=== PATIENT | male | born 1970 | race Caucasian/White ===

== ENCOUNTER 2021-05-15 05:37 | Inpatient (IN) | payer BC, OTHER ==
[2021-05-15] MEDS ORDERED: SODIUM CHLORIDE 0.9% 1,000 ML IV STA (06:17)
[2021-05-15] MEDS ORDERED: PANTOPRAZOLE 40 MG/10 ML VIAL IVP STA (06:17)
--- NOTE | 2021-05-15 06:20 | ED ---
General Adult HPI - General Chief complaint: GI Bleed Stated complaint: Vomiting Blood Time Seen by Provider: 05/15/21 06:02 Source: patient, RN notes reviewed Mode of arrival: ambulatory - History of Present Illness Initial comments: 50-year-old male with a past medical history of hypertension, chronic alcoholism presents to the emergency room for a chief complaint of vomiting blood times one. Patient states he woke up this morning and had some upper abdominal discomfort. Patient states he vomited about a cup of blood. Patient states that for the past year 4 days he has also had black stools and has felt off. Patient denies any additional episodes of hematemesis. patient denies similar symptoms in the past. Patient has no other complaints at this time including sh ortness of breath, chest pain, abdominal pain, headache, or visual changes. - Related Data Home Medications Medication Instructions Recorded Confirmed DULoxetine HCL [Cymbalta] 180 mg PO PC-SUPPER 05/15/21 05/15/21 Enalapril [Vasotec] 10 mg PO DIRECTED 05/15/21 05/15/21 Esomeprazole Magnesium [NexIUM 20 mg PO PC-SUPPER 05/15/21 05/15/21 24Hr] amLODIPine [Norvasc] 10 mg PO PC-SUPPER 05/15/21 05/15/21 Allergies Allergy/AdvReac Type Severity Reaction Status Date / Time No Known Allergies Allergy Verified 05/15/21 08:05 Review of Systems ROS Statement: Those systems with pertinent positive or pertinent negative responses have been documented in the HPI. ROS Other: All systems not noted in ROS Statement are negative. Past Medical History Past Medical History: Hypertension History of Any Multi-Drug Resistant Organisms: None Reported Past Surgical History: Appendectomy, Orthopedic Surgery Past Psychological History: Bipolar Smoking Status: Current every day smoker Past Alcohol Use History: Abuse, Daily, Heavy Past Drug Use History: None Reported General Exam General appearance: alert, in no apparent distress Head exam: Present: atraumatic Eye exam: Present: normal appearance, PERRL, EOMI. Absent: scleral icterus, conjunctival injection ENT exam: Present: normal exam, mucous membranes moist Neck exam: Present: normal inspection, full ROM. Absent: tenderness Respiratory exam: Present: normal lung sounds bilaterally. Absent: respiratory distress, wheezes Cardiovascular Exam: Present: regular rate, normal rhythm, normal heart sounds GI/Abdominal exam: Present: soft, normal bowel sounds. Absent: distended, tenderness, guarding, rebound, rigid Rectal exam: Present: normal inspection, black stool Neurological exam: Present: alert Course Vital Signs 05/15/21 05/15/21 05/15/21 05:40 06:41 07:29 Temperature 97.9 F 98.6 F Pulse Rate 85 80 91 Respiratory 20 18 14 Rate Blood Pressure 98/65 133/79 137/71 O2 Sat by Pulse 99 100 99 Oximetry 05/15/21 05/15/21 12:50 15:19 Temperature 98.3 F Pulse Rate 91 86 Respiratory 18 14 Rate Blood Pressure 120/65 130/90 O2 Sat by Pulse 99 96 Oximetry Medical Decision Making - Medical Decision Making Vitals are stable. Patient presents to the emergency room for hematemesis and black stools. He has only had one episode of hematemesis. Patient is an alcoholic. CBC does show a hemoglobin of 7.9. He do not have a previous on file. CMP does show mild dehydration. Slight hypomagnesemia, will be replaced. Occult blood is positive. X-ray of the chest is unremarkable. Patient was given Protonix. Case discussed with Dr. Hagen. As we will have GI on board tomorrow morning he is agreeing to consult on patient today as it is extremely difficult to facilitate transfers secondary to the pandemic at this time, recommends admission to medicine. We will repeat hemoglobin 4 hours. - Lab Data Result diagrams: 05/15/21 11:59 05/15/21 06:23 Lab Results 05/15/21 05/15/21 05/15/21 Range/Units 06:23 06:23 06:23 WBC 11.6 H (3.8-10.6) k/uL RBC 2.75 L (4.30-5.90) m/uL Hgb 7.9 L (13.0-17.5) gm/dL Hct 24.9 L (39.0-53.0) % MCV 90.4 (80.0-100.0) fL MCH 28.8 (25.0-35.0) pg MCHC 31.9 (31.0-37.0) g/dL RDW 16.2 H (11.5-15.5) % Plt Count 218 (150-450) k/uL MPV 7.5 Neutrophils % 78 % Lymphocytes % 11 % Monocytes % 6 % Eosinophils % 1 % Basophils % 1 % Neutrophils # 9.0 H (1.3-7.7) k/uL Lymphocytes # 1.3 (1.0-4.8) k/uL Monocytes # 0.7 (0-1.0) k/uL Eosinophils # 0.1 (0-0.7) k/uL Basophils # 0.1 (0-0.2) k/uL Anisocytosis Slight PT 11.6 (9.0-12.0) sec INR 1.1 (<1.2) APTT 24.8 (22.0-30.0) sec Sodium (137-145) mmol/L Potassium (3.5-5.1) mmol/L Chloride (98-107) mmol/L Carbon Dioxide (22-30) mmol/L Anion Gap mmol/L BUN (9-20) mg/dL Creatinine (0.66-1.25) mg/dL Est GFR (CKD-EPI)AfAm (>60 ml/min/1.73 sqM) Est GFR (CKD-EPI)NonAf (>60 ml/min/1.73 sqM) Glucose (74-99) mg/dL Calcium (8.4-10.2) mg/dL Magnesium (1.6-2.3) mg/dL Total Bilirubin (0.2-1.3) mg/dL AST (17-59) U/L ALT (4-49) U/L Alkaline Phosphatase (38-126) U/L Total Protein (6.3-8.2) g/dL Albumin (3.5-5.0) g/dL Stool Occult Blood Positive (Negative) Blood Type Blood Type Confirm Blood Type Recheck Bld Type Recheck Status Antibody Screen Spec Expiration Date 05/15/21 05/15/21 05/15/21 Range/Units 06:23 06:50 06:55 WBC (3.8-10.6) k/uL RBC (4.30-5.90) m/uL Hgb (13.0-17.5) gm/dL Hct (39.0-53.0) % MCV (80.0-100.0) fL MCH (25.0-35.0) pg MCHC (31.0-37.0) g/dL RDW (11.5-15.5) % Plt Count (150-450) k/uL MPV Neutrophils % % Lymphocytes % % Monocytes % % Eosinophils % % Basophils % % Neutrophils # (1.3-7.7) k/uL Lymphocytes # (1.0-4.8) k/uL Monocytes # (0-1.0) k/uL Eosinophils # (0-0.7) k/uL Basophils # (0-0.2) k/uL Anisocytosis PT (9.0-12.0) sec INR (<1.2) APTT (22.0-30.0) sec Sodium 131 L (137-145) mmol/L Potassium 4.1 (3.5-5.1) mmol/L Chloride 99 (98-107) mmol/L Carbon Dioxide 23 (22-30) mmol/L Anion Gap 9 mmol/L BUN 26 H (9-20) mg/dL Creatinine 0.54 L (0.66-1.25) mg/dL Est GFR (CKD-EPI)AfAm >90 (>60 ml/min/1.73 sqM) Est GFR (CKD-EPI)NonAf >90 (>60 ml/min/1.73 sqM) Glucose 137 H (74-99) mg/dL Calcium 8.8 (8.4-10.2) mg/dL Magnesium 1.4 L (1.6-2.3) mg/dL Total Bilirubin 1.2 (0.2-1.3) mg/dL AST 119 H (17-59) U/L ALT 64 H (4-49) U/L Alkaline Phosphatase 70 (38-126) U/L Total Protein 7.3 (6.3-8.2) g/dL Albumin 3.9 (3.5-5.0) g/dL Stool Occult Blood (Negative) Blood Type A Negative Blood Type Confirm A Negative Blood Type Recheck No Previous Record Bld Type Recheck Status CABO Indicated Antibody Screen NEGATIVE Spec Expiration Date 05/18/20212354 Disposition Clinical Impression: GI bleed, Dehydration, Hypomagnesemia Disposition: ADMITTED IP TO THIS HOSP Is patient prescribed a controlled substance at d/c from ED?: No Time of Disposition: 08:09
[2021-05-15 06:34] LABS: Anisocytosis Slight; Basophils # (A) 0.1 k/uL (0-0.2); Basophils % (A) 1 %; Eosinophils # (A) 0.1 k/uL (0-0.7); Eosinophils % (A) 1 %; HCT 24.9 % (39.0-53.0); HGB 7.9 gm/dL (13.0-17.5); Lymphocytes # (A) 1.3 k/uL (1.0-4.8); Lymphocytes % (A) 11 %; MCH 28.8 pg (25.0-35.0); MCHC 31.9 g/dL (31.0-37.0); MCV 90.4 fL (80.0-100.0); Mean Platelet Volume 7.5; Monocytes # (A) 0.7 k/uL (0-1.0); Monocytes % (A) 6 %; Neutrophils % (A) 78 %; Platelet Count 218 k/uL (150-450); RBC 2.75 m/uL (4.30-5.90); RDW 16.2 % (11.5-15.5); WBC 11.6 k/uL (3.8-10.6)
[2021-05-15 06:46] LABS: INR 1.1 (<1.2); Partial Thromboplastin Time 24.8 sec (22.0-30.0); Prothrombin Time 11.6 sec (9.0-12.0)
--- NOTE | 2021-05-15 06:47 | XR ---
EXAMINATION TYPE: XR chest 1V portable DATE OF EXAM: 05/15/2021 COMPARISON: Chest x-ray October 03, 2013 HISTORY: Chest pain and hemoptysis. TECHNIQUE: Single frontal upright view of the chest is obtained. FINDINGS: There is no suspicious for new focal air space opacity, pleural effusion, or pneumothorax seen. The cardiac silhouette size remains stable and within normal limits. The osseous structures are intact. IMPRESSION: No acute process.
[2021-05-15 06:50] LABS: ALT 64 U/L (4-49); AST 119 U/L (17-59); African American GFR (CKD) >90 (>60 ml/min/1.73 sqM); Albumin 3.9 g/dL (3.5-5.0); Alkaline Phosphatase 70 U/L (38-126); Anion Gap 9 mmol/L; Blood Urea Nitrogen 26 mg/dL (9-20); Calcium 8.8 mg/dL (8.4-10.2); Carbon Dioxide 23 mmol/L (22-30); Chloride 99 mmol/L (98-107); Glucose 137 mg/dL (74-99); Magnesium 1.4 mg/dL (1.6-2.3); Non-African American GFR(CKD) >90 (>60 ml/min/1.73 sqM); Potassium 4.1 mmol/L (3.5-5.1); Sodium 131 mmol/L (137-145); Total Bilirubin 1.2 mg/dL (0.2-1.3); Total Protein 7.3 g/dL (6.3-8.2)
[2021-05-15] MEDS ORDERED: ONDANSETRON 4 MG/2 ML VIAL IVP PRN (08:10)
[2021-05-15] MEDS ORDERED: LORazepam 2 MG/ML INJ IV PRN ×3 (08:10)
[2021-05-15] MEDS ORDERED: THIAMINE 100 MG/ML 2 ML VIAL IM STA (08:10)
[2021-05-15] MEDS ORDERED: MORPHINE SULFATE 4 MG/ML SYRINGE IV PRN (08:10)
[2021-05-15] MEDS ORDERED: NALOXONE 0.4 MG/ML 1 ML VIAL IV PRN ×2 (08:10→11:58)
[2021-05-15] MEDS ORDERED: MAGNESIUM SULFATE-D5W PMX 1 GM in DEXTROSE/WATER 1 100ML.BAG IVPB STA (08:12)
--- NOTE | 2021-05-15 12:08 | P.HPIM ---
History of Present Illness H&P Date: 05/15/21 Chief Complaint: GI bleeding 50-year-old male with a past medical history of hypertension, chronic alcoholism presents to the emergency room for a chief complaint of vomiting blood times one. Patient states he woke up this morning and had some upper abdominal discomfort. Patient states he vomited about a cup of blood. Patient states that for the past year 4 days he has also had black stools. Patient has also been experiencing dizziness, weakness as well as shortness of breath. He never had issues GI bleeding in the past. He is not on blood thinners. He does not t makeda any [id number] pain medications. Of note he drinks a pint of liquor daily. Has been doing that since last September. No fevers, chills, chest pain, abdominal pain, headache, or visual changes. Evaluation in the emergency department revealed normal vital signs, positive stool for occult blood. WBC count 11.6, hemoglobin 7.9, hematocrit 24.9, MCV 90, sodium 131, BUN 26, creatinine 0.54, magnesium 1.4, AST 119, ALT 64. Chest x-ray without acute abnormalities. Review of Systems Complete review of system performed, pertinent positives per HPI, otherwise negative. Past Medical History Past Medical History: Hypertension History of Any Multi-Drug Resistant Organisms: None Reported Past Surgical History: Appendectomy, Orthopedic Surgery Past Psychological History: Bipolar Smoking Status: Current every day smoker Past Alcohol Use History: Abuse, Daily, Heavy Past Drug Use History: None Reported Medications and Allergies Home Medications Medication Instructions Recorded Confirmed Type DULoxetine HCL [Cymbalta] 180 mg PO PC-SUPPER 05/15/21 05/15/21 History Enalapril [Vasotec] 10 mg PO DIRECTED 05/15/21 05/15/21 History Esomeprazole Magnesium [NexIUM 20 mg PO PC-SUPPER 05/15/21 05/15/21 History 24Hr] amLODIPine [Norvasc] 10 mg PO PC-SUPPER 05/15/21 05/15/21 History Allergies Allergy/AdvReac Type Severity Reaction Status Date / Time No Known Allergies Allergy Verified 05/15/21 08:05 Physical Exam Vitals: Vital Signs Temp Pulse Resp BP Pulse Ox 05/15/21 07:29 91 14 137/71 99 05/15/21 06:41 98.6 F 80 18 133/79 100 05/15/21 05:40 97.9 F 85 20 98/65 99 Intake and Output 05/14/21 05/15/21 05/15/21 22:59 06:59 14:59 Other: Weight 117.934 kg Constitutional: No acute distress, conversant, pleasant Eyes:Anicteric sclerae, moist conjunctiva, no lid-lag, PERRLA, ENMT: Oropharynx clear, no erythema, exudates Neck: Supple, FROM, no masses, or JVD, No carotid bruits, No thyromegaly Lungs: Clear to auscultation, Clear to percussion, Normal respiratory effort, no accessory muscle use Cardiovascular: Heart regular in rate and rhythm, No murmurs, gallops, or rubs, No peripheral edema Abdominal: Soft, Nontender, no guarding, rebound or rigidity, Normoactive bowel sounds, No hepatomegaly, No splenomegaly, No palpable mass Skin: Normal temperature, tone, texture, turgor, no induration, No subcutaneous nodules, No rash, lesions, No ulcers Extremities: No digital cyanosis, No clubbing, Pedal pulses intact and symmetrical, Radial pulses intact and symmetrical, No calf tenderness Psychiatric: Alert and oriented to person, place and time, appropriate affect, intact judgement Neuro: Muscles Strength 5/5 in all 4 extremities, Sensation to light touch grossly present throughout, Cranial nerves II-XII grossly intact, no focal sensory deficits Results CBC & Chem 7: 05/15/21 06:23 05/15/21 06:23 Labs: Abnormal Lab Results - Last 24 Hours (Table) 05/15/21 05/15/21 Range/Units 06:23 06:23 WBC 11.6 H (3.8-10.6) k/uL RBC 2.75 L (4.30-5.90) m/uL Hgb 7.9 L (13.0-17.5) gm/dL Hct 24.9 L (39.0-53.0) % RDW 16.2 H (11.5-15.5) % Neutrophils # 9.0 H (1.3-7.7) k/uL Sodium 131 L (137-145) mmol/L BUN 26 H (9-20) mg/dL Creatinine 0.54 L (0.66-1.25) mg/dL Glucose 137 H (74-99) mg/dL Magnesium 1.4 L (1.6-2.3) mg/dL AST 119 H (17-59) U/L ALT 64 H (4-49) U/L Assessment and Plan Plan: GI bleeding Likely upper Rule out acute gastritis versus esophageal varices We'll need EGD Monitor hemoglobin, will recheck in the afternoon. IV fluids IV PPI Nothing by mouth Consult surgery and GI Hypomagnesemia Replace Recheck in a.m. EtOH abuse Counseled to quit Start thiamine, multivitamin and folic acid Start CIWA protocol Hypertension Resume home meds DVT prophylaxis Patient is ambulatory, low risk anticoagulation is contraindicated Admit to inpatient, expected length of stay more than 2 midnights
[2021-05-15 12:12] LABS: Basophils # (A) 0.1 k/uL (0-0.2); Basophils % (A) 1 %; Eosinophils % (A) 0 %; HCT 23.3 % (39.0-53.0); HGB 7.6 gm/dL (13.0-17.5); Lymphocytes # (A) 1.7 k/uL (1.0-4.8); Lymphocytes % (A) 14 %; MCH 29.3 pg (25.0-35.0); MCHC 32.4 g/dL (31.0-37.0); MCV 90.6 fL (80.0-100.0); Mean Platelet Volume 8.5; Monocytes # (A) 0.9 k/uL (0-1.0); Monocytes % (A) 8 %; Neutrophils # (A) 8.7 k/uL (1.3-7.7); Neutrophils % (A) 75 %; Platelet Count 178 k/uL (150-450); RBC 2.58 m/uL (4.30-5.90); RDW 15.9 % (11.5-15.5); WBC 11.6 k/uL (3.8-10.6)
--- NOTE | 2021-05-15 12:30 | P.GSCN ---
History of Present Illness Consult date: 05/15/21 Reason for Consult: GI bleeding History of present illness: 50-year-old male with history of chronic alcohol use presents with single episode of hematemesis. Patient was having some mild nausea with that. Says her was about a cup of blood present. Has had black colored stools for the last 4 days. Did feel somewhat dizzy. Mild shortness of breath. No history of similar events. Patient has never been told he has cirrhosis or varices. No history of ascites. Coags are normal. Liver enzymes elevated. Hemoglobin 7.9. Review of Systems The patient denies any acute changes in vision or hearing, no dysphagia or odynophagia, no chest pain or shortness of breath, no dysuria or hematuria, no headache, no runny nose, no bright red rectal bleeding, no unexplained weight loss Past Medical History Past Medical History: Hypertension History of Any Multi-Drug Resistant Organisms: None Reported Past Surgical History: Appendectomy, Orthopedic Surgery Past Psychological History: Bipolar Smoking Status: Current every day smoker Past Alcohol Use History: Abuse, Daily, Heavy Past Drug Use History: None Reported Medications and Allergies Home Medications Medication Instructions Recorded Confirmed Type DULoxetine HCL [Cymbalta] 180 mg PO PC-SUPPER 05/15/21 05/15/21 History Enalapril [Vasotec] 10 mg PO DIRECTED 05/15/21 05/15/21 History Esomeprazole Magnesium [NexIUM 20 mg PO PC-SUPPER 05/15/21 05/15/21 History 24Hr] amLODIPine [Norvasc] 10 mg PO PC-SUPPER 05/15/21 05/15/21 History Allergies Allergy/AdvReac Type Severity Reaction Status Date / Time No Known Allergies Allergy Verified 05/15/21 08:05 Surgical - Exam Vital Signs Temp Pulse Resp BP Pulse Ox 97.9 F 85 20 98/65 99 05/15/21 05:40 05/15/21 05:40 05/15/21 05:40 05/15/21 05:40 05/15/21 05:40 Physical exam: General: Well-developed, well-nourished HEENT: Normocephalic, sclerae nonicteric Abdomen: Nontender, nondistended Extremities: No edema Neuro: Alert and oriented Results - Labs 05/15/21 11:59 05/15/21 06:23 Abnormal Lab Results - Last 24 Hours (Table) 05/15/21 05/15/21 05/15/21 Range/Units 06:23 06:23 11:59 WBC 11.6 H 11.6 H (3.8-10.6) k/uL RBC 2.75 L 2.58 L (4.30-5.90) m/uL Hgb 7.9 L 7.6 L (13.0-17.5) gm/dL Hct 24.9 L 23.3 L (39.0-53.0) % RDW 16.2 H 15.9 H (11.5-15.5) % Neutrophils # 9.0 H 8.7 H (1.3-7.7) k/uL Sodium 131 L (137-145) mmol/L BUN 26 H (9-20) mg/dL Creatinine 0.54 L (0.66-1.25) mg/dL Glucose 137 H (74-99) mg/dL Magnesium 1.4 L (1.6-2.3) mg/dL AST 119 H (17-59) U/L ALT 64 H (4-49) U/L Diabetes panel 05/15/21 Range/Units 06:23 Sodium 131 L (137-145) mmol/L Potassium 4.1 (3.5-5.1) mmol/L Chloride 99 (98-107) mmol/L Carbon Dioxide 23 (22-30) mmol/L BUN 26 H (9-20) mg/dL Creatinine 0.54 L (0.66-1.25) mg/dL Glucose 137 H (74-99) mg/dL Calcium 8.8 (8.4-10.2) mg/dL AST 119 H (17-59) U/L ALT 64 H (4-49) U/L Alkaline Phosphatase 70 (38-126) U/L Total Protein 7.3 (6.3-8.2) g/dL Albumin 3.9 (3.5-5.0) g/dL Calcium panel 05/15/21 Range/Units 06:23 Calcium 8.8 (8.4-10.2) mg/dL Albumin 3.9 (3.5-5.0) g/dL Pituitary panel 05/15/21 Range/Units 06:23 Sodium 131 L (137-145) mmol/L Potassium 4.1 (3.5-5.1) mmol/L Chloride 99 (98-107) mmol/L Carbon Dioxide 23 (22-30) mmol/L BUN 26 H (9-20) mg/dL Creatinine 0.54 L (0.66-1.25) mg/dL Glucose 137 H (74-99) mg/dL Calcium 8.8 (8.4-10.2) mg/dL Adrenal panel 05/15/21 Range/Units 06:23 Sodium 131 L (137-145) mmol/L Potassium 4.1 (3.5-5.1) mmol/L Chloride 99 (98-107) mmol/L Carbon Dioxide 23 (22-30) mmol/L BUN 26 H (9-20) mg/dL Creatinine 0.54 L (0.66-1.25) mg/dL Glucose 137 H (74-99) mg/dL Calcium 8.8 (8.4-10.2) mg/dL Total Bilirubin 1.2 (0.2-1.3) mg/dL AST 119 H (17-59) U/L ALT 64 H (4-49) U/L Alkaline Phosphatase 70 (38-126) U/L Total Protein 7.3 (6.3-8.2) g/dL Albumin 3.9 (3.5-5.0) g/dL Assessment and Plan (1) GI bleed Narrative/Plan: 50-year-old male with upper GI bleed and history of alcohol use. Case discussed with Dr. Zepeda who is currently out of town. She is agreeable to have EGD scheduled for her to perform tomorrow. This will be arranged. Will remain on surgical standby. Continue nothing by mouth and antiacid therapy. Current Visit: Yes Status: Acute Code(s): K92.2 - GASTROINTESTINAL HEMORRHAGE, UNSPECIFIED SNOMED Code(s): 80629370
[2021-05-15] MEDS: SODIUM CHLORIDE 0.9% 1,000 ML IV SCH (12:52)
[2021-05-15] MEDS: lisinopriL 20 MG TAB PO SCH (14:57)
[2021-05-15] MEDS ORDERED: NON FORMULARY DRUG (Esomeprazole Magnesium [Nexium 24hr] 20 MG Tablet) PO SCH (18:30)
[2021-05-15] MEDS: PANTOPRAZOLE 40 MG/10 ML VIAL IVP SCH (19:58)
[2021-05-16] MEDS: amLODIPine 10 MG TAB PO SCH ×2 (08:26→18:03)
[2021-05-16] MEDS: THIAMINE 100 MG TAB PO SCH ×3 (08:26→18:03)
[2021-05-16] MEDS: DULoxetine HCL 60 MG CAPSULE.DR PO SCH ×2 (08:26→18:03)
[2021-05-16] MEDS: PANTOPRAZOLE 40 MG/10 ML VIAL IVP SCH ×2 (08:30→20:27)
[2021-05-16] MEDS: SODIUM CHLORIDE 0.9% 1,000 ML IV SCH ×2 (09:49→14:15)
[2021-05-16] MEDS: lisinopriL 20 MG TAB PO SCH (09:49)
[2021-05-16 09:54] LABS: African American GFR (CKD) 136.8 (60.0-200.0); Albumin 3.6 g/dL (3.8-4.9); Albumin/Globulin Ratio 1.33 (1.60-3.17); BUN/Creat Ratio 34.67 Ratio (12.00-20.00); Blood Urea Nitrogen 20.8 mg/dL (9.0-27.0); Calcium 8.2 mg/dL (8.7-10.3); Globulin 2.7 g/dL (1.6-3.3); Magnesium 2.2 mg/dL (1.5-2.4); Non-African American GFR(CKD) 118.1 (60.0-200.0); Potassium 3.8 mmol/L (3.5-5.5); Total Bilirubin 0.7 mg/dL (0.30-1.20); Total Protein 6.3 g/dL (6.2-8.2)
--- NOTE | 2021-05-16 10:29 | P.CONS ---
History of Present Illness - Reason for Consult Consult date: 05/16/21 GI bleed Requesting physician: Onesimo Pandey - Chief Complaint Vomiting blood - History of Present Illness This is a 50-year-old white male with a past medical history including alcohol abuse, tobacco abuse, bipolar disorder and hypertension who presented to the emergency department yesterday morning with complaints of vomiting bright red blood approximately one cupful around 3:30 AM Sunday. Patient denies any previous history of a GI bleed. He states he only had the one episode of vomiting. He does report having 3-4 days of black stool prior to episode of emesis. He does state he drinks at least a pint a day since September, but has history of alcohol abuse prior to that as well. He does state he has had an EGD in the past he believes 8-9 years ago and was told he had a hiatal hernia. Admitting labs WBC 11.6 hemoglobin 7.9 hematocrit 24.9 platelet count 218,010 are 1.1 BUN 26 total bilirubin 1.2 AST 119 ALT 64 alkaline phosphatase 70. He had a positive occult stool. He denies any previous history of known liver disease or elevated LFTs. Today's labs are currently pending. He denies any abdominal pain, nausea, or vomiting. He had no associated abdominal pain during his emesis. He has been afebrile. Review of Systems REVIEW OF SYSTEMS: CARDIOPULMONARY: No chest pain or shortness of breath. Gastrointestinal: No epigastric or abdominal pain. One episode of emesis with bright red blood yesterday morning. Melena 3-4 days. MUSCULOSKELETAL: Reports normal range of motion., Joint pain. SKIN: No rashes. No jaundice. ENDOCRINE: No chills, fevers. No excessive weight gain or loss. No polydipsia or polyuria. PSYCHIATRIC: Unremarkable. NEUROLOGY: No change in mental status. Denies dizziness, headache. ENT: Vision unremarkable. CONSTITUTIONAL: No recent weight loss. No fever, chills, night sweats. Past Medical History Past Medical History: Hypertension History of Any Multi-Drug Resistant Organisms: None Reported Past Surgical History: Appendectomy, Orthopedic Surgery Past Psychological History: Bipolar Smoking Status: Current every day smoker Past Alcohol Use History: Abuse, Daily, Heavy Past Drug Use History: None Reported - Past Family History Father Family Medical History: Coronary Artery Disease (CAD), Hyperlipidemia, Hypertension Additional Family Medical History / Comment(s): Cardiac stents. Mother Family Medical History: Cancer, Coronary Artery Disease (CAD) Additional Family Medical History / Comment(s): Breast cancer, cardiac stents. Medications and Allergies Home Medications Medication Instructions Recorded Confirmed Type DULoxetine HCL [Cymbalta] 180 mg PO PC-SUPPER 05/15/21 05/15/21 History Esomeprazole Magnesium [NexIUM 20 mg PO PC-SUPPER 05/15/21 05/15/21 History 24Hr] amLODIPine [Norvasc] 10 mg PO PC-SUPPER 05/15/21 05/15/21 History Enalapril [Vasotec] 10 mg PO BID 05/16/21 05/16/21 History Allergies Allergy/AdvReac Type Severity Reaction Status Date / Time No Known Allergies Allergy Verified 05/15/21 08:05 Physical Exam Vitals: Vital Signs Temp Pulse Resp BP Pulse Ox 05/16/21 08:28 99.1 F 72 16 131/77 99 05/16/21 06:19 80 18 133/81 100 05/16/21 04:24 72 16 132/80 97 05/16/21 02:48 78 14 138/70 97 05/16/21 00:42 98.8 F 90 18 137/89 98 05/15/21 23:22 87 16 133/82 97 05/15/21 22:32 98.7 F 88 16 133/80 98 05/15/21 19:52 98.6 F 84 18 133/80 97 05/15/21 18:28 105 H 18 113/80 99 05/15/21 15:19 86 14 130/90 96 05/15/21 12:50 98.3 F 91 18 120/65 99 General appearance: The patient is alert, oriented, appears in no acute distress. HET: Head is normocephalic and atraumatic. Conjunctiva pink. Sclera anicteric. Neck: Supple without lymphadenopathy. Trachea midline. Heart: S1 S2. Regular rate and rhythm. Lungs: Clear to auscultation. Abdomen: Soft, nontender, nondistended with bowel sounds. No guarding or rigidity. Skin: No rashes. No jaundice. Extremities: Normal skin color and turgor. No pedal edema. Neurological: No focal deficits. Alert and oriented x3. Results CBC & Chem 7: 01/09/22 11:59 05/16/21 05:55 Labs: Abnormal Lab Results - Last 24 Hours (Table) 05/15/21 Range/Units 11:59 WBC 11.6 H (3.8-10.6) k/uL RBC 2.58 L (4.30-5.90) m/uL Hgb 7.6 L (13.0-17.5) gm/dL Hct 23.3 L (39.0-53.0) % RDW 15.9 H (11.5-15.5) % Neutrophils # 8.7 H (1.3-7.7) k/uL Assessment and Plan (1) GI bleed Narrative/Plan: This a 50-year-old male with a history of alcohol abuse who admits to drinking 1 pint per day since September. He presented to the emergency department yesterday morning with complaints of 1 episode of bloody vomit. He states that he had approximately 1 cup of bright red blood. [facility]. He denied any associated abdominal pain or diarrhea with the vomiting. He he denies any history of known liver disease. No history of esophageal varices. He did have an upper endoscopy approximately 8-9 years ago which she states they found a hiatal hernia. On admission he was noted to be anemic with a hemoglobin of 7.9. Repeat labs are pending. Possible etiologies include esophageal varices, AVM, gastritis, esophagitis or other possible etiologies. Protonix 40 mg twice a day. Plan for upper endoscopy today. Current Visit: Yes Status: Acute Code(s): K92.2 - GASTROINTESTINAL HEMORRHAGE, UNSPECIFIED SNOMED Code(s): 82955212 Plan: 1. Symptomatic and supportive care 2. Nothing by mouth 3. Protonix 40 mg twice a day 4. Daily CBC transfuse for hemoglobin less than 7 5. Plan for upper endoscopy today. Procedure discussed with patient including risks and benefits. Patient willing to proceed. Thank you for this consultation, we will continue to follow. Dr. John Werner I agree with the dictator's note, documented as a scribe by Oma Jorge.
[2021-05-16 11:15] LABS: Basophils # (A) 0.07 X 10*3/uL (0.00-0.10); Basophils % (A) 0.7 %; Eosinophils # (A) 0.13 X 10*3/uL (0.04-0.35); Eosinophils % (A) 1.3 %; Lymphocytes # (A) 1.64 X 10*3/uL (0.90-5.00); Monocytes # (A) 1.16 X 10*3/uL (0.20-1.00); Neutrophils # (A) 6.58 X 10*3/uL (1.80-7.70); Neutrophils % (A) 68.4 %
--- NOTE | 2021-05-16 11:20 | P.PN ---
<KalieSheyla - Last Filed: 05/16/21 11:14> Subjective Progress Note Date: 05/16/21 CHIEF COMPLAINT: GI bleed HISTORY OF PRESENT ILLNESS: Patient has had no further episodes of hematemesis. He does report one black stool yesterday. He does have a history of chronic alcohol use. He is lying in bed comfortably. Denies any abdominal pain. Scheduled for EGD with Dr. Werner today. Afebrile. CBC pending. LFTs trending downwards magnesium 2.2 PHYSICAL EXAM: VITAL SIGNS: Reviewed. GENERAL: Well-developed in no acute distress. HEENT: No sclera icterus. Extraocular movements grossly intact. Moist buccal mucosa. Head is atraumatic, normocephalic. ABDOMEN: Soft. Nondistended. Nontender. NEUROLOGIC: Alert and oriented. Cranial nerves II through XII grossly intact. ASSESSMENT: 1. Acute upper GI bleed with history of alcohol use PLAN: -Patient scheduled for EGD with Dr. Werner today -Continue to monitor hemoglobin -Continue monitor for any signs or symptoms of bleeding -Continue PPI -Continue CIWA protocol as needed for alcohol withdrawal Physician Sole Rounding Machine Operator note has been reviewed by physician. Signing provider agrees with the documented findings, assessment, and plan of care. Objective - Vital Signs Vital signs: Vital Signs Temp 98.6 F 05/16/21 09:13 Pulse 84 05/16/21 09:13 Resp 16 05/16/21 08:28 BP 143/75 05/16/21 09:13 Pulse Ox 99 05/16/21 09:13 Intake & Output 05/15/21 05/16/21 05/16/21 18:59 06:59 18:59 Weight 117.934 kg Other: # Voids 1 - Labs CBC & Chem 7: 05/15/21 11:59 05/16/21 05:55 Labs: Abnormal Lab Results - Last 24 Hours (Table) 05/15/21 05/16/21 Range/Units 11:59 05:55 WBC 11.6 H (3.8-10.6) k/uL RBC 2.58 L (4.30-5.90) m/uL Hgb 7.6 L (13.0-17.5) gm/dL Hct 23.3 L (39.0-53.0) % RDW 15.9 H (11.5-15.5) % Neutrophils # 8.7 H (1.3-7.7) k/uL BUN/Creatinine Ratio 34.67 H (12.00-20.00) Ratio Calcium 8.2 L (8.7-10.3) mg/dL AST 109 H (14-35) U/L ALT 57 H (10-49) U/L Albumin 3.6 L (3.8-4.9) g/dL Albumin/Globulin Ratio 1.33 L (1.60-3.17) g/dL <Onesimo Pandey - Last Filed: 05/16/21 12:27> Subjective As above. I have personally seen and examined the patient, reviewed the COMMERCIAL PEST CONTROL REPRESENTATIVE /PAs history, exam and MDM and agree with the assessment and plan as written. Based on total visit time, I have performed more than 50% of the visit. No further bleeding today. Denies pain. Await EGD. Will follow. Objective - Vital Signs Vital signs: Vital Signs Temp 98.6 F 05/16/21 09:13 Pulse 84 05/16/21 09:13 Resp 16 05/16/21 08:28 BP 143/75 05/16/21 09:13 Pulse Ox 99 05/16/21 09:13 Intake & Output 05/15/21 05/16/21 05/16/21 18:59 06:59 18:59 Weight 117.934 kg Other: # Voids 1 - Labs CBC & Chem 7: 05/16/21 05:55 05/16/21 05:55 Labs: Abnormal Lab Results - Last 24 Hours (Table) 05/15/21 05/16/21 05/16/21 Range/Units 06:55 05:55 05:55 RBC 2.21 L (4.40-5.60) X 10*6/uL Hgb 6.2 L* (13.0-17.0) g/dL Hct 20.0 L (39.6-50.0) % MCHC 31.0 L (32.0-37.0) g/dL RDW 16.4 H (11.5-14.5) % Immature Gran # 0.06 H (0.00-0.04) X 10*3/uL Monocytes # 1.16 H (0.20-1.00) X 10*3/uL BUN/Creatinine Ratio 34.67 H (12.00-20.00) Ratio Calcium 8.2 L (8.7-10.3) mg/dL AST 109 H (14-35) U/L ALT 57 H (10-49) U/L Albumin 3.6 L (3.8-4.9) g/dL Albumin/Globulin Ratio 1.33 L (1.60-3.17) g/dL Crossmatch See Detail Assessment and Plan (1) GI bleed Current Visit: Yes Status: Acute Code(s): K92.2 - GASTROINTESTINAL HEMORRHAGE, UNSPECIFIED SNOMED Code(s): 17162791
[2021-05-16 11:22] LABS: HGB 6.2 g/dL (13.0-17.0); Hypochromasia (M) 2+; MCH 28.1 pg (27.0-32.0); MCV 90.5 fL (80.0-97.0); Mean Platelet Volume 9.6 fL (9.5-12.2); Platelet Count 173 X 10*3/uL (140-440); RBC 2.21 X 10*6/uL (4.40-5.60); RDW 16.4 % (11.5-14.5); WBC 9.64 X 10*3/uL (4.50-10.00)
--- NOTE | 2021-05-16 11:36 | P.PN ---
Subjective Progress Note Date: 05/16/21 Principal diagnosis: Hematemesis Patient has not had any episodes of hematemsis or black stools since admission. Feeling fine currently. No fevers or chills. No pain. Objective - Vital Signs Vital signs: Vital Signs Temp 98.6 F 05/16/21 09:13 Pulse 84 05/16/21 09:13 Resp 16 05/16/21 08:28 BP 143/75 05/16/21 09:13 Pulse Ox 99 05/16/21 09:13 Intake & Output 05/15/21 05/16/21 05/16/21 18:59 06:59 18:59 Weight 117.934 kg Other: # Voids 1 - Exam Constitutional: No acute distress, conversant, pleasant Eyes:Anicteric sclerae, moist conjunctiva, no lid-lag, PERRLA, ENMT: Oropharynx clear, no erythema, exudates Neck: Supple, FROM, no masses, or JVD, No carotid bruits, No thyromegaly Lungs: Clear to auscultation, Clear to percussion, Normal respiratory effort, no accessory muscle use Cardiovascular: Heart regular in rate and rhythm, No murmurs, gallops, or rubs, No peripheral edema Abdominal: Soft, Nontender, no guarding, rebound or rigidity, Normoactive bowel sounds, No hepatomegaly, No splenomegaly, No palpable mass Skin: Normal temperature, tone, texture, turgor, no induration, No subcutaneous nodules, No rash, lesions, No ulcers Extremities: No digital cyanosis, No clubbing, Pedal pulses intact and symmetrical, Radial pulses intact and symmetrical, No calf tenderness Psychiatric: Alert and oriented to person, place and time, appropriate affect, intact judgement Neuro: Muscles Strength 5/5 in all 4 extremities, Sensation to light touch grossly present throughout, Cranial nerves II-XII grossly intact, no focal sensory deficits - Labs CBC & Chem 7: 05/16/21 05:55 05/16/21 05:55 Labs: Abnormal Lab Results - Last 24 Hours (Table) 05/15/21 05/16/21 05/16/21 Range/Units 11:59 05:55 05:55 WBC 11.6 H (3.8-10.6) k/uL RBC 2.58 L 2.21 L (4.30-5.90) m/uL Hgb 7.6 L 6.2 L* (13.0-17.5) gm/dL Hct 23.3 L 20.0 L (39.0-53.0) % MCHC 31.0 L (32.0-37.0) g/dL RDW 15.9 H 16.4 H (11.5-15.5) % Immature Gran # 0.06 H (0.00-0.04) X 10*3/uL Neutrophils # 8.7 H (1.3-7.7) k/uL Monocytes # 1.16 H (0.20-1.00) X 10*3/uL BUN/Creatinine Ratio 34.67 H (12.00-20.00) Ratio Calcium 8.2 L (8.7-10.3) mg/dL AST 109 H (14-35) U/L ALT 57 H (10-49) U/L Albumin 3.6 L (3.8-4.9) g/dL Albumin/Globulin Ratio 1.33 L (1.60-3.17) g/dL Assessment and Plan Plan: GI bleeding Likely upper Rule out acute gastritis versus esophageal varices Monitor hemoglobin IV fluids IV PPI Nothing by mouth GI planning EGD today Acute blood loss anemia Will transfuse one unit of PRBC Hypomagnesemia Replaced EtOH abuse Counseled to quit Thiamine, multivitamin and folic acid [facility] protocol Hypertension Resume home meds DVT prophylaxis Patient is ambulatory, low risk anticoagulation is contraindicated
[2021-05-16] MEDS ORDERED: KETAMINE 10 MG/ML 20 ML VIAL ONE (12:43)
[2021-05-16] MEDS ORDERED: LIDOCAINE 1% INJ 10MG/ML (20 ML MDV) ONE (12:43)
[2021-05-16] MEDS ORDERED: PROPOFOL 10 MG/ML 20 ML VIAL IV ONE (12:43)
[2021-05-16] MEDS ORDERED: GLYCOPYRROLATE 0.2 MG/ML 2 ML VIAL ONE (12:43)
[2021-05-16] MEDS ORDERED: IV FLUID CONTINUATION 1,000 ML IV ONE (12:45)
[2021-05-16] MEDS ORDERED: SODIUM CHLORIDE 0.9% 500 ML 500 ML IV ONE (12:57)
--- NOTE | 2021-05-16 13:02 | P.PCN ---
Date of Procedure: 05/16/21 Procedure(s) Performed: BRIEF HISTORY: Patient is a 50-year-old, pleasant, white male admitted hospital with acute upper GI bleed. History of heavy alcohol abuse and alcoholic hepatitis. He scheduled for an upper endoscopy to evaluate further PROCEDURE PERFORMED: Esophagogastroduodenoscopy with variceal ligation. PREOPERATIVE DIAGNOSIS: Acute upper GI bleed. IV sedation per anesthesia. PROCEDURE: After informed consent was obtained, the patient was brought into the endoscopy unit. IV sedation was administered by Anesthesia under continuous monitoring. Initially the Olympus GIF-140 video endoscope was inserted into the mouth. Esophagus intubated without any difficulty. It was gradually advanced into the stomach and duodenum and carefully examined. The bulb and the second part of the duodenum appeared normal. The scope at this time was withdrawn to the stomach, adequately insufflated with air, and upon careful examination, mucosa of the antrum, appeared normal. Mucosa of the body, cardia and the fundus had changes consistent with mild to moderate portal hypertensive gastropathy. The scope was then withdrawn into the esophagus. The GE junction was located at 39 cm from the incisors. There were small mid/distal esophageal varices with no active bleeding. The rest of the esophagus appeared normal. There were no erosions or ulcerations seen . At this time the scope was removed esophageal variceal ligation endoscopy was negative. Esophagus intubated without any difficulty and was gradually advanced into the distal esophagus. Using suction total of 5 bands were deployed in the distal and midesophagus. The patient tolerated the procedure well. IMPRESSION: 1. Small mid and distal esophageal varices status post recent ligation as described above. 2. Mild to moderate portal hypertensive gastropathy. RECOMMENDATIONS: The findings of this examination were discussed with the patient as well as his family. He will remain on a full liquid diet today. Repeat CBC in the morning. No further bleeding and advance diet as tolerated and can be discharged home tomorrow. Recommended abstinence from alcohol..
[2021-05-17] MEDS: SODIUM CHLORIDE 0.9% 1,000 ML IV SCH (01:56)
[2021-05-17] MEDS: PANTOPRAZOLE 40 MG/10 ML VIAL IVP SCH ×2 (08:24→20:57)
[2021-05-17] MEDS: THIAMINE 100 MG TAB PO SCH ×2 (08:24→15:46)
[2021-05-17] MEDS: lisinopriL 20 MG TAB PO SCH (08:24)
[2021-05-17 08:45] LABS: Anisocytosis Slight; Basophils # (A) 0.1 k/uL (0-0.2); Basophils % (A) 1 %; Eosinophils # (A) 0.2 k/uL (0-0.7); Eosinophils % (A) 2 %; HCT 25.2 % (39.0-53.0); HGB 8.1 gm/dL (13.0-17.5); Hypochromasia Slight; Lymphocytes # (A) 1.2 k/uL (1.0-4.8); Lymphocytes % (A) 13 %; MCH 29.6 pg (25.0-35.0); MCHC 32.1 g/dL (31.0-37.0); Mean Platelet Volume 7.7; Monocytes # (A) 0.6 k/uL (0-1.0); Monocytes % (A) 6 %; Neutrophils # (A) 7.1 k/uL (1.3-7.7); Neutrophils % (A) 77 %; Platelet Count 188 k/uL (150-450); RBC 2.73 m/uL (4.30-5.90); RDW 16.5 % (11.5-15.5); WBC 9.2 k/uL (3.8-10.6)
[2021-05-17 08:59] LABS: ALT 68 U/L (4-49); AST 140 U/L (17-59); African American GFR (CKD) >90 (>60 ml/min/1.73 sqM); Albumin 3.8 g/dL (3.5-5.0); Alkaline Phosphatase 75 U/L (38-126); Anion Gap 7 mmol/L; Blood Urea Nitrogen 9 mg/dL (9-20); Calcium 8.4 mg/dL (8.4-10.2); Carbon Dioxide 26 mmol/L (22-30); Chloride 105 mmol/L (98-107); Glucose 121 mg/dL (74-99); Magnesium 1.9 mg/dL (1.6-2.3); Non-African American GFR(CKD) >90 (>60 ml/min/1.73 sqM); Potassium 3.6 mmol/L (3.5-5.1); Sodium 138 mmol/L (137-145); Total Bilirubin 1.1 mg/dL (0.2-1.3); Total Protein 7.4 g/dL (6.3-8.2)
--- NOTE | 2021-05-17 11:14 | P.PN ---
Subjective Progress Note Date: 05/17/21 Hospital course: Patient is a 50-year-old male with a past medical history of hypertension and chronic alcoholism. He presented to the emergency department on 05/25/21 with a chief complaint of vomiting blood x1 episode accompanied by upper abdominal discomfort with a 4 day history of black tarry stools, dizziness, fatigue, weakness, and shortness of breath with exertion. Patient was found to have acute blood loss anemia and admitted under our services for GI bleed with consultation to Gen. surgery and gastroenterology. Hemoglobin dropped to 6.2 and patient was transfused 1 unit PRBCs. He was placed on Protonix 40 mg IVP twice daily and underwent EGD with Dr. Werner on 05/16/21 with variceal ligation. Physical exam: Vital signs reviewed and stable. General: Nontoxic, no distress and appears stated age. Derm: Skin warm and dry, normal coloration for ethnicity. Head: Atraumatic, normocephalic and symmetric. Eyes: EOMs intact, no lid lag, and anicteric sclera Mouth: no lip lesions, mucus membranes moist Cardiovascular: regular rate and rhythm with normal S1S2, no murmur, positive posterior tibial pulses bilaterally, and cap refill < 2 seconds. Lungs: Respirations even, regular, and unlabored on room air. Lungs CTA bilaterally, no rhonchi, no rales, no wheezing, and no accessory muscle usage. Abdominal: soft, nontender to palpation, no guarding, no appreciable organomegaly Ext: ROM intact. No gross muscle atrophy, no edema, no contractures Neuro: Speech clear, face symmetrical and CN II-XII grossly intact with no noted focal neuro deficits Psych: Alert and oriented to person, place, time, and situation. Appropriate and pleasant affect. Assessment and Plan of Care: Upper GI bleed Acute blood loss anemia secondary to upper GI bleed -Patient underwent EGD with variceal ligation on 05/16/21 -Gastroenterology following. -Status post 1 unit PRBCs -Hemoglobin stable at 8.1 -Continue Protonix 40 mg IVP twice daily. -SCDs for DVT prophylaxis. EtOH use/abuse -[facility] Protocol with symptom triggered medication management with benzodiazepines. -Thiamine 100 mg twice a day -Multivitamin daily -Folate 1 mg daily -Seizure, fall, aspiration, and elopement precautions in place. -Continued close monitoring of electrolytes and replace as needed. -Telemetry monitoring. Hypertension -Monitor vital signs and continue daily medication regimen with amlodipine and lisinopril. Hypomagnesemia, resolved CODE STATUS: Full code DVT prophylaxis: SCDs Discussed with: Patient and RN Anticipated discharge date: Likely tomorrow morning Anticipated discharge place: Home A total of 40 minutes was spent on the care of this complex patient more than 50% of the time was spent in counseling and care coordination. Objective - Vital Signs Vital signs: Vital Signs Temp 98.2 F 05/17/21 08:00 Pulse 75 05/17/21 08:15 Resp 18 05/17/21 08:15 BP 144/70 05/17/21 08:00 Pulse Ox 95 05/17/21 08:00 Intake & Output 05/16/21 05/17/21 05/17/21 18:59 06:59 18:59 Intake Total 610 1440 Balance 610 1440 Weight 117.934 kg Intake: IV 300 Intake, IV Titration 900 Amount Sodium Chloride 0.9% 1, 900 000 ml @ 75 mls/hr IV . [id number] [facility] Rx#:[id number] Oral 540 Blood Product 310 Rc As-1 Unit 310 [id number] Other: # Voids 1 3 - Labs CBC & Chem 7: 05/17/21 08:29 05/17/21 08:29 Labs: Abnormal Lab Results - Last 24 Hours (Table) 05/15/21 05/16/21 05/17/21 Range/Units 06:55 05:55 08:29 RBC 2.21 L 2.73 L (4.40-5.60) X 10*6/uL Hgb 6.2 L* 8.1 L (13.0-17.0) g/dL Hct 20.0 L 25.2 L (39.6-50.0) % MCHC 31.0 L (32.0-37.0) g/dL RDW 16.4 H 16.5 H (11.5-14.5) % Immature Gran # 0.06 H (0.00-0.04) X 10*3/uL Monocytes # 1.16 H (0.20-1.00) X 10*3/uL Creatinine (0.66-1.25) mg/dL Glucose (74-99) mg/dL AST (17-59) U/L ALT (4-49) U/L Crossmatch See Detail 05/17/21 Range/Units 08:29 RBC (4.40-5.60) X 10*6/uL Hgb (13.0-17.0) g/dL Hct (39.6-50.0) % MCHC (32.0-37.0) g/dL RDW (11.5-14.5) % Immature Gran # (0.00-0.04) X 10*3/uL Monocytes # (0.20-1.00) X 10*3/uL Creatinine 0.55 L (0.66-1.25) mg/dL Glucose 121 H (74-99) mg/dL AST 140 H (17-59) U/L ALT 68 H (4-49) U/L Crossmatch
--- NOTE | 2021-05-17 12:25 | P.PN ---
<Sheyla Jade - Last Filed: 05/17/21 12:21> Subjective Progress Note Date: 05/17/21 CHIEF COMPLAINT: GI bleed HISTORY OF PRESENT ILLNESS: Patient has had no further episodes of hematemesis. He denies abdominal pain. Denies any further black stools. Status post EGD which revealed a small mid and distal esophageal varices status post with 5 bands deployed. Mild to moderate portal hypertensive gastropathy. Patient did receive 1 unit of blood for hemoglobin of 6.2. Hemoglobin is now up to 8.1. Patient is tolerating diet. Afebrile. Patient reports possible discharge later today PHYSICAL EXAM: VITAL SIGNS: Reviewed. GENERAL: Well-developed in no acute distress. HEENT: No sclera icterus. Extraocular movements grossly intact. Moist buccal mucosa. Head is atraumatic, normocephalic. ABDOMEN: Soft. Nondistended. Nontender. NEUROLOGIC: Alert and oriented. Cranial nerves II through XII grossly intact. ASSESSMENT: 1. Acute upper GI bleed with history of alcohol use PLAN: -Continue supportive care -Recommend abstinence from alcohol -Possible discharge later today Physician Lokie Engineer note has been reviewed by physician. Signing provider agrees with the documented findings, assessment, and plan of care. Objective - Vital Signs Vital signs: Vital Signs Temp 98.2 F 05/17/21 08:00 Pulse 75 05/17/21 08:15 Resp 18 05/17/21 08:15 BP 144/70 05/17/21 08:00 Pulse Ox 95 05/17/21 08:00 Intake & Output 05/16/21 05/17/21 05/17/21 18:59 06:59 18:59 Intake Total 610 1440 Balance 610 1440 Weight 117.934 kg Intake: IV 300 Intake, IV Titration 900 Amount Sodium Chloride 0.9% 1, 900 000 ml @ 75 mls/hr IV . [id number] [facility] Rx#:[id number] Oral 540 Blood Product 310 Rc As-1 Unit 310 [id number] Other: # Voids 1 3 - Labs CBC & Chem 7: 05/17/21 08:29 05/17/21 08:29 Labs: Abnormal Lab Results - Last 24 Hours (Table) 05/15/21 05/17/21 05/17/21 Range/Units 06:55 08:29 08:29 RBC 2.73 L (4.30-5.90) m/uL Hgb 8.1 L (13.0-17.5) gm/dL Hct 25.2 L (39.0-53.0) % RDW 16.5 H (11.5-15.5) % Creatinine 0.55 L (0.66-1.25) mg/dL Glucose 121 H (74-99) mg/dL AST 140 H (17-59) U/L ALT 68 H (4-49) U/L Crossmatch See Detail <Onesimo Pandey - Last Filed: 05/17/21 17:01> Subjective I have personally seen and examined the patient, reviewed the ELECTRON GUN INSPECTOR /PAs history, exam and MDM and agree with the assessment and plan as written. Based on total visit time, I have performed more than 50% of the visit. No further bleeding. Tolerating diet. September discharge. Follow-up with GI. Objective - Vital Signs Vital signs: Vital Signs Temp 98.2 F 05/17/21 08:00 Pulse 75 05/17/21 08:15 Resp 18 05/17/21 08:15 BP 144/70 05/17/21 08:00 Pulse Ox 95 05/17/21 08:00 Intake & Output 05/16/21 05/17/21 05/17/21 18:59 06:59 18:59 Intake Total 610 1440 Balance 610 1440 Weight 117.934 kg Intake: IV 300 Intake, IV Titration 900 Amount Sodium Chloride 0.9% 1, 900 000 ml @ 75 mls/hr IV . [id number] [facility] Rx#:[id number] Oral 540 Blood Product 310 Rc As-1 Unit 310 [id number] Other: # Voids 1 3 - Labs CBC & Chem 7: 05/17/21 08:29 05/17/21 08:29 Labs: Abnormal Lab Results - Last 24 Hours (Table) 05/15/21 05/17/21 05/17/21 Range/Units 06:55 08:29 08:29 RBC 2.73 L (4.30-5.90) m/uL Hgb 8.1 L (13.0-17.5) gm/dL Hct 25.2 L (39.0-53.0) % RDW 16.5 H (11.5-15.5) % Creatinine 0.55 L (0.66-1.25) mg/dL Glucose 121 H (74-99) mg/dL AST 140 H (17-59) U/L ALT 68 H (4-49) U/L Crossmatch See Detail Assessment and Plan (1) GI bleed Current Visit: Yes Status: Acute Code(s): K92.2 - GASTROINTESTINAL HEMORRHA GE, UNSPECIFIED SNOMED Code(s): 45799543
--- NOTE | 2021-05-17 13:19 | P.PN ---
Subjective Progress Note Date: 05/17/21 Principal diagnosis: Patient is 50-year-old male with a history of heavy alcohol abuse who presented with upper GI bleed. Yesterday he underwent EGD with variceal ligation. Findi ngs included small mid and distal esophageal varices and mild to moderate portal hypertensive gastropathy. He denies any further bleeding today. Denies any nausea vomiting or abdominal pain. Yesterday he had a drop in his hemoglobin to 6.2 and received 1 unit PRBC transfusion. Repeat hemoglobin today 8.1. Objective - Vital Signs Vital signs: Vital Signs Temp 98.6 F 05/17/21 02:00 Pulse 88 05/17/21 02:00 Resp 16 05/17/21 02:00 BP 139/74 05/17/21 02:00 Pulse Ox 96 05/17/21 02:00 Intake & Output 05/16/21 05/17/21 05/17/21 18:59 06:59 18:59 Intake Total 610 1440 Balance 610 1440 Weight 117.934 kg Intake: IV 300 Intake, IV Titration 900 Amount Sodium Chloride 0.9% 1, 900 000 ml @ 75 mls/hr IV . [id number] [facility] Rx#:[id number] Oral 540 Blood Product 310 Rc As-1 Unit 310 [id number] Other: # Voids 1 3 - Exam General appearance: The patient is alert, oriented, appears in no acute distress. HET: Head is normocephalic and atraumatic. Conjunctiva pink. Sclera anicteric. Neck: Supple without lymphadenopathy. Abdomen: Soft, nontender, nondistended with bowel sounds. No guarding or rigidity. Extremities: Normal skin color and turgor. No pedal edema Skin: No rashes, no jaundice Neurological: No focal deficits. Alert and oriented -3. - Labs CBC & Chem 7: 05/17/21 08:29 05/17/21 08:29 Labs: Abnormal Lab Results - Last 24 Hours (Table) 05/15/21 05/16/21 05/16/21 Range/Units 06:55 05:55 05:55 RBC 2.21 L (4.40-5.60) X 10*6/uL Hgb 6.2 L* (13.0-17.0) g/dL Hct 20.0 L (39.6-50.0) % MCHC 31.0 L (32.0-37.0) g/dL RDW 16.4 H (11.5-14.5) % Immature Gran # 0.06 H (0.00-0.04) X 10*3/uL Monocytes # 1.16 H (0.20-1.00) X 10*3/uL BUN/Creatinine Ratio 34.67 H (12.00-20.00) Ratio Calcium 8.2 L (8.7-10.3) mg/dL AST 109 H (14-35) U/L ALT 57 H (10-49) U/L Albumin 3.6 L (3.8-4.9) g/dL Albumin/Globulin Ratio 1.33 L (1.60-3.17) g/dL Crossmatch See Detail Assessment and Plan (1) GI bleed Narrative/Plan: This a 50-year-old male with a history of alcohol abuse who admits to drinking 1 pint per day since September. He presented to the emergency department yesterday morning with complaints of 1 episode of bloody vomit. He states that he had approximately 1 cup of bright red blood. He presented to the emergency department for further evaluation. He denied any associated abdominal pain or diarrhea with the vomiting. He he denies any history of known liver disease. No history of esophageal varices. He did have an upper endoscopy approximately 8-9 years ago which she states they found a hiatal hernia. On admission he was noted to be anemic with a hemoglobin of 7.9. Repeat labs are pending. Possible etiologies include esophageal varices, AVM, gastritis, esophagitis or other possible etiologies. Protonix 40 mg twice a day. Plan for upper endoscopy today. Current Visit: Yes Status: Acute Code(s): K92.2 - GASTROINTESTINAL HEMORRHAGE, UNSPECIFIED SNOMED Code(s): 64302006 (2) Esophageal varices Narrative/Plan: Patient underwent EGD with findings of small mid and distal esophageal varices status post ligation as well as mild to moderate portal hypertensive gastropathy Current Visit: Yes Status: Acute Code(s): I85.00 - ESOPHAGEAL VARICES WITHOUT BLEEDING SNOMED Code(s): 97804953 (3) Alcohol abuse Current Visit: Yes Status: Acute Code(s): F10.10 - ALCOHOL ABUSE, UNCOMP LICATED SNOMED Code(s): 21836718 Plan: 1. May advance diet to regular diet 2. Alcohol abstinence, discussed with patient importance of alcohol abstinence to decrease risk of further esophageal variceal bleeding as well as cirrhosis of the liver 3. Start Inderal 10 mg 3 times a day, prescription sent 4. Patient to follow-up with gastroenterology in 4 weeks, will have repeat EGD done in 6 weeks and will need close outpatient follow-up 5. Patient is cleared for discharge from gastroenterology Thank you for this consultation, we will continue to follow. Dr. John Werner I agree with the dictator's note, documented as a scribe by Oma Jorge.
[2021-05-17] MEDS: FOLIC ACID 1 MG TAB PO SCH (15:46)
[2021-05-17] MEDS: PROPRANOLOL 10 MG TAB PO SCH ×2 (15:46→20:57)
[2021-05-17] MEDS: MULTIVITAMINS, THERA 1 EACH TAB PO SCH (15:46)
[2021-05-17] MEDS: DULoxetine HCL 60 MG CAPSULE.DR PO SCH (17:45)
[2021-05-17] MEDS: amLODIPine 10 MG TAB PO SCH (17:46)
[2021-05-18 07:56] LABS: Anisocytosis Slight; HCT 22.9 % (39.0-53.0); HGB 7.1 gm/dL (13.0-17.5); Hypochromasia Moderate; MCH 29.3 pg (25.0-35.0); MCV 94.4 fL (80.0-100.0); Mean Platelet Volume 7.8; Platelet Count 197 k/uL (150-450); RBC 2.43 m/uL (4.30-5.90); WBC 9.1 k/uL (3.8-10.6)
[2021-05-18] MEDS: MULTIVITAMINS, THERA 1 EACH TAB PO SCH (08:12)
[2021-05-18] MEDS: PROPRANOLOL 10 MG TAB PO SCH ×3 (08:12→20:54)
[2021-05-18] MEDS: PANTOPRAZOLE 40 MG/10 ML VIAL IVP SCH ×2 (08:12→20:54)
[2021-05-18] MEDS: THIAMINE 100 MG TAB PO SCH ×2 (08:12→16:34)
[2021-05-18] MEDS: FOLIC ACID 1 MG TAB PO SCH (08:12)
[2021-05-18] MEDS: lisinopriL 20 MG TAB PO SCH (08:12)
[2021-05-18 08:15] LABS: ALT 56 U/L (4-49); AST 98 U/L (17-59); African American GFR (CKD) >90 (>60 ml/min/1.73 sqM); Albumin 3.2 g/dL (3.5-5.0); Alkaline Phosphatase 68 U/L (38-126); Anion Gap 5 mmol/L; Blood Urea Nitrogen 14 mg/dL (9-20); Calcium 8.3 mg/dL (8.4-10.2); Carbon Dioxide 25 mmol/L (22-30); Chloride 104 mmol/L (98-107); Glucose 101 mg/dL (74-99); Non-African American GFR(CKD) >90 (>60 ml/min/1.73 sqM); Potassium 3.7 mmol/L (3.5-5.1); Sodium 134 mmol/L (137-145); Total Bilirubin 0.8 mg/dL (0.2-1.3); Total Protein 6.3 g/dL (6.3-8.2)
--- NOTE | 2021-05-18 10:54 | P.PN ---
<Rito Pérez - Last Filed: 05/18/21 12:21> Subjective Progress Note Date: 05/18/21 Hospital course: Patient is a 50-year-old male with a past medical history of hypertension and chronic alcoholism. He presented to the emergency department on 05/25/21 with a chief complaint of vomiting blood x1 episode accompanied by upper abdominal discomfort with a 4 day history of black tarry stools, dizziness, fatigue, weakness, and shortness of breath with exertion. Patient was found to have acute blood loss anemia and admitted under our services for GI bleed with consultation to Gen. surgery and gastroenterology. Hemoglobin dropped to 6.2 and patient was transfused 1 unit PRBCs. He was placed on Protonix 40 mg IVP twice daily and underwent EGD with Dr. Werner on 05/16/21 with variceal ligation with deploy of 5 bands. Today, pt's hgb dropped from 8.1 down to 7.1. He has not had any further bleeding noted and denies any episodes of hematemesis or hemoptysis. Patient tolerating oral intake and denies having any dysphagia or sore throat. He denies headache, lightheadedness, dizziness, chest pain, palpitations, or shortness of breath. Vital signs unremarkable. Secondary to drop in hemoglobin, we will repeat CBC this afternoon and again tomorrow morning to ensure it is stable prior to discharging patient home. Physical exam: Vital signs reviewed and stable. General: Nontoxic, no distress and appears stated age. Derm: Skin warm and dry, normal coloration for ethnicity. Head: Atraumatic, normocephalic and symmetric. Eyes: EOMs intact, no lid lag, and anicteric sclera Mouth: no lip lesions, mucus membranes moist Cardiovascular: regular rate and rhythm with normal S1S2, no murmur, positive posterior tibial pulses bilaterally, and cap refill < 2 seconds. Lungs: Respirations even, regular, and unlabored on room air. Lungs CTA bilaterally, no rhonchi, no rales, no wheezing, and no accessory muscle usage. Abdominal: soft, nontender to palpation, no guarding, no appreciable or ganomegaly Ext: ROM intact. No gross muscle atrophy, no edema, no contractures Neuro: Speech clear, face symmetrical and CN II-XII grossly intact with no noted focal neuro deficits Psych: Alert and oriented to person, place, time, and situation. Appropriate and pleasant affect. Assessment and Plan of Care: Upper GI bleed Acute blood loss anemia secondary to upper GI bleed -Patient underwent EGD with variceal ligation and placement of 5 bands on 05/16/21 -Gastroenterology following. -Gen. surgery following -Status post 1 unit PRBCs -Hemoglobin dropped from 8.1 down to 7.1 this morning. -Continue Protonix 40 mg IVP twice daily. -SCDs for DVT prophylaxis. -Plans to repeat CBC this afternoon and again tomorrow morning. EtOH use/abuse Transaminitis secondary to chronic EtOH abuse, improving -[facility] Protocol with symptom triggered medication management with benzodiazepines. -Thiamine 100 mg twice a day -Multivitamin daily -Folate 1 mg daily -Seizure, fall, aspiration, and elopement precautions in place. -Continued close monitoring of electrolytes and replace as needed. -Telemetry monitoring. Hypertension -Monitor vital signs and continue daily medication regimen with amlodipine and lisinopril. Hypomagnesemia, resolved CODE STATUS: Full code DVT prophylaxis: SCDs Discussed with: Patient and RN Anticipated discharge date: Tomorrow morning if hemoglobin is stable. Anticipated discharge place: Home A total of 40 minutes was spent on the care of this complex patient more than 50% of the time was spent in counseling and care coordination. Objective - Vital Signs Vital signs: Vital Signs Temp 98.2 F 05/18/21 04:37 Pulse 99 05/18/21 04:37 Resp 16 05/18/21 04:37 BP 117/65 05/18/21 04:37 Pulse Ox 99 05/18/21 04:37 Intake & Output 05/17/21 05/18/21 05/18/21 18:59 06:59 18:59 Intake Total 240 900 Balance 240 900 Intake: Intake, IV Titration 900 Amount Sodium Chloride 0.9% 1, 900 000 ml @ 75 mls/hr IV . [id number] [facility] Rx#:[id number] Oral 240 Other: Voiding Method Toilet # Voids 4 3 - Labs CBC & Chem 7: 05/18/21 07:13 05/18/21 07:13 Labs: Abnormal Lab Results - Last 24 Hours (Table) 05/18/21 05/18/21 Range/Units 07:13 07:13 RBC 2.43 L (4.30-5.90) m/uL Hgb 7.1 L (13.0-17.5) gm/dL Hct 22.9 L (39.0-53.0) % RDW 17.0 H (11.5-15.5) % Sodium 134 L (137-145) mmol/L Glucose 101 H (74-99) mg/dL Calcium 8.3 L (8.4-10.2) mg/dL AST 98 H (17-59) U/L ALT 56 H (4-49) U/L Albumin 3.2 L (3.5-5.0) g/dL <CarynLorenedevaughn - Last Filed: 05/18/21 17:00> Subjective I reviewed the documentation as provided by the DINO above, who is the original author of this note. I agree with the documented assessment and plan, with the following changes: None Objective - Vital Signs Vital signs: Vital Signs Temp 98.4 F 05/18/21 14:00 Pulse 72 05/18/21 14:00 Resp 16 05/18/21 04:37 BP 131/68 05/18/21 14:00 Pulse Ox 99 05/18/21 14:00 Intake & Output 05/17/21 05/18/21 05/18/21 18:59 06:59 18:59 Intake Total 240 900 Balance 240 900 Intake: Intake, IV Titration 900 Amount Sodium Chloride 0.9% 1, 900 000 ml @ 75 mls/hr IV . [id number] [facility] Rx#:[id number] Oral 240 Other: Voiding Method Toilet # Voids 4 3 - Labs CBC & Chem 7: 05/18/21 12:27 05/18/21 07:13 Labs: Abnormal Lab Results - Last 24 Hours (Table) 05/18/21 05/18/21 05/18/21 Range/Units 07:13 07:13 07:13 RBC 2.43 L (4.30-5.90) m/uL Hgb 7.1 L (13.0-17.5) gm/dL Hct 22.9 L (39.0-53.0) % RDW 17.0 H (11.5-15.5) % Sodium 134 L (137-145) mmol/L Glucose 101 H (74-99) mg/dL Calcium 8.3 L (8.4-10.2) mg/dL Iron 12 L (65-175) ug/dL % Saturation 2.74 L (15.00-50.00) AST 98 H (17-59) U/L ALT 56 H (4-49) U/L Albumin 3.2 L (3.5-5.0) g/dL 05/18/21 Range/Units 12:27 RBC 2.59 L (4.30-5.90) m/uL Hgb 7.6 L (13.0-17.5) gm/dL Hct 24.4 L (39.0-53.0) % RDW 16.4 H (11.5-15.5) % Sodium (137-145) mmol/L Glucose (74-99) mg/dL Calcium (8.4-10.2) mg/dL Iron (65-175) ug/dL % Saturation (15.00-50.00) AST (17-59) U/L ALT (4-49) U/L Albumin (3.5-5.0) g/dL
--- NOTE | 2021-05-18 11:20 | P.PN ---
<ScottyannabelSheyla - Last Filed: 05/18/21 11:17> Subjective Progress Note Date: 05/18/21 CHIEF COMPLAINT: GI bleed HISTORY OF PRESENT ILLNESS: Patient is lying in bed comfortably. Patient has had no further episodes of hematemesis. He denies abdominal pain. Denies any further black stools. Status post EGD which revealed a small mid and distal esophageal varices status post with 5 bands deployed. Mild to moderate portal hypertensive gastropathy. Patient is tolerating diet. Afebrile. Patient's hemoglobin did drop from 8.1-7.1 PHYSICAL EXAM: VITAL SIGNS: Reviewed. GENERAL: Well-developed in no acute distress. HEENT: No sclera icterus. Extraocular movements grossly intact. Moist buccal mucosa. Head is atraumatic, normocephalic. ABDOMEN: Soft. Nondistended. Nontender. NEUROLOGIC: Alert and oriented. Cranial nerves II through XII grossly intact. ASSESSMENT: 1. Acute upper GI bleed with history of alcohol use status post EGD and banding of distal esophageal varices by Dr. Werner PLAN: -Continue supportive care -Medicine services repeating patient's hemoglobin this afternoon. -Recommend abstinence from alcohol Physician Cna Hha note has been reviewed by physician. Signing provider agrees with the documented findings, assessment, and plan of care. Objective - Vital Signs Vital signs: Vital Signs Temp 98.2 F 05/18/21 04:37 Pulse 99 05/18/21 04:37 Resp 16 05/18/21 04:37 BP 117/65 05/18/21 04:37 Pulse Ox 99 05/18/21 04:37 Intake & Output 05/17/21 05/18/21 05/18/21 18:59 06:59 18:59 Intake Total 240 900 Balance 240 900 Intake: Intake, IV Titration 900 Amount Sodium Chloride 0.9% 1, 900 000 ml @ 75 mls/hr IV . [id number] [facility] Rx#:[id number] Oral 240 Other: Voiding Method Toilet # Voids 4 3 - Labs CBC & Chem 7: 05/18/21 07:13 05/18/21 07:13 Labs: Abnormal Lab Results - Last 24 Hours (Table) 05/18/21 05/18/21 Range/Units 07:13 07:13 RBC 2.43 L (4.30-5.90) m/uL Hgb 7.1 L (13.0-17.5) gm/dL Hct 22.9 L (39.0-53.0) % RDW 17.0 H (11.5-15.5) % Sodium 134 L (137-145) mmol/L Glucose 101 H (74-99) mg/dL Calcium 8.3 L (8.4-10.2) mg/dL AST 98 H (17-59) U/L ALT 56 H (4-49) U/L Albumin 3.2 L (3.5-5.0) g/dL <Onesimo Pandey - Last Filed: 05/18/21 12:11> Subjective I have personally seen and examined the patient, reviewed the SECURITIES SUPERVISOR /PAs history, exam and MDM and agree with the assessment and plan as written. Based on total visit time, I have performed more than 50% of the visit. As above. No active bleeding. Hemoglobin dropped somewhat. Continue diet. Discharge per GI. We'll sign off. Please call if needed. Objective - Vital Signs Vital signs: Vital Signs Temp 98.2 F 05/18/21 04:37 Pulse 99 05/18/21 04:37 Resp 16 05/18/21 04:37 BP 117/65 05/18/21 04:37 Pulse Ox 99 05/18/21 04:37 Intake & Output 05/17/21 05/18/21 05/18/21 18:59 06:59 18:59 Intake Total 240 900 Balance 240 900 Intake: Intake, IV Titration 900 Amount Sodium Chloride 0.9% 1, 900 000 ml @ 75 mls/hr IV . [id number] [facility] Rx#:[id number] Oral 240 Other: Voiding Method Toilet # Voids 4 3 - Labs CBC & Chem 7: 05/18/21 07:13 05/18/21 07:13 Labs: Abnormal Lab Results - Last 24 Hours (Table) 05/18/21 05/18/21 Range/Units 07:13 07:13 RBC 2.43 L (4.30-5.90) m/uL Hgb 7.1 L (13.0-17.5) gm/dL Hct 22.9 L (39.0-53.0) % RDW 17.0 H (11.5-15.5) % Sodium 134 L (137-145) mmol/L Glucose 101 H (74-99) mg/dL Calcium 8.3 L (8.4-10.2) mg/dL AST 98 H (17-59) U/L ALT 56 H (4-49) U/L Albumin 3.2 L (3.5-5.0) g/dL Assessment and Plan (1) GI bleed Current Visit: Yes Status: Acute Code(s): K92.2 - GASTROINTESTINAL HEMORRHAGE, UNSPECIFIED SNOMED Code(s): 21607823
[2021-05-18 12:52] LABS: Anisocytosis Slight; Basophils # (A) 0.1 k/uL (0-0.2); Basophils % (A) 1 %; Eosinophils # (A) 0.2 k/uL (0-0.7); Eosinophils % (A) 2 %; HCT 24.4 % (39.0-53.0); HGB 7.6 gm/dL (13.0-17.5); Hypochromasia Moderate; Lymphocytes # (A) 1.1 k/uL (1.0-4.8); Lymphocytes % (A) 12 %; MCH 29.2 pg (25.0-35.0); MCV 94.2 fL (80.0-100.0); Mean Platelet Volume 7.6; Monocytes # (A) 0.9 k/uL (0-1.0); Monocytes % (A) 9 %; Neutrophils # (A) 6.8 k/uL (1.3-7.7); Neutrophils % (A) 74 %; Platelet Count 226 k/uL (150-450); RBC 2.59 m/uL (4.30-5.90); RDW 16.4 % (11.5-15.5); WBC 9.2 k/uL (3.8-10.6)
--- NOTE | 2021-05-18 14:48 | P.PN ---
Subjective Progress Note Date: 05/18/21 Patient is 50-year-old male with a history of heavy alcohol abuse who presented with upper GI bleed. He underwent EGD with variceal ligation. Findings included small mid and distal esophageal varices and mild to moderate portal hypertensive gastropathy. He was transfused 1 unit of PRBC transfusion with a repeat hemoglobin yesterday of 8.3. This morning he had repeat labs showing a drop in his hemoglobin is 7.1 he denies any bowel movements, no further hematemesis, denies nausea, vomiting or abdominal pain. He has been tolerating a regular diet. He's been up and ambulating. Objective - Vital Signs Vital signs: Vital Signs Temp 98.2 F 05/18/21 04:37 Pulse 99 05/18/21 04:37 Resp 16 05/18/21 04:37 BP 117/65 05/18/21 04:37 Pulse Ox 99 05/18/21 04:37 Intake & Output 05/17/21 05/18/21 05/18/21 18:59 06:59 18:59 Intake Total 240 900 Balance 240 900 Intake: Intake, IV Titration 900 Amount Sodium Chloride 0.9% 1, 900 000 ml @ 75 mls/hr IV . [id number] [facility] Rx#:[id number] Oral 240 Other: Voiding Method Toilet # Voids 4 3 - Exam General appearance: The patient is alert, oriented, appears in no acute distress. HET: Head is normocephalic and atraumatic. Conjunctiva pink. Sclera anicteric. Neck: Supple without lymphadenopathy. Abdomen: Soft, nontender, nondistended with bowel sounds. No guarding or rigidity. Extremities: Normal skin color and turgor. No pedal edema Skin: No rashes, no jaundice Neurological: No focal deficits. Alert and oriented -3. - Labs CBC & Chem 7: 05/18/21 12:27 05/18/21 07:13 Labs: Abnormal Lab Results - Last 24 Hours (Table) 05/18/21 05/18/21 Range/Units 07:13 07:13 RBC 2.43 L (4.30-5.90) m/uL Hgb 7.1 L (13.0-17.5) gm/dL Hct 22.9 L (39.0-53.0) % RDW 17.0 H (11.5-15.5) % Sodium 134 L (137-145) mmol/L Glucose 101 H (74-99) mg/dL Calcium 8.3 L (8.4-10.2) mg/dL AST 98 H (17-59) U/L ALT 56 H (4-49) U/L Albumin 3.2 L (3.5-5.0) g/dL Assessment and Plan (1) GI bleed Narrative/Plan: This a 50-year-old male with a history of alcohol abuse who admits to drinking 1 pint per day since September. He presented to the emergency department yesterday morning with complaints of 1 episode of bloody vomit. He states that he had approximately 1 cup of bright red blood. He presented to the emergency department for further evaluation. He denied any associated abdominal pain or diarrhea with the vomiting. He he denies any history of known liver disease. No history of esophageal varices. He did have an upper endoscopy approximately 8-9 years ago which she states they found a hiatal hernia. On admission he was noted to be anemic with a hemoglobin of 7.9. Repeat labs are pending. Possible etiologies include esophageal varices, AVM, gastritis, esophagitis or other possible etiologies. Protonix 40 mg twice a day. Plan for upper endoscopy today. Current Visit: Yes Status: Acute Code(s): K92.2 - GASTROINTESTINAL HEMORRHAGE, UNSPECIFIED SNOMED Code(s): 91441521 (2) Esophageal varices Narrative/Plan: Patient underwent EGD with findings of small mid and distal esophageal varices status post ligation as well as mild to moderate portal hypertensive gastropathy Current Visit: Yes Status: Acute Code(s): I85.00 - ESOPHAGEAL VARICES WI THOUT BLEEDING SNOMED Code(s): 79990081 (3) Alcohol abuse Current Visit: Yes Status: Acute Code(s): F10.10 - ALCOHOL ABUSE, UNCOMPLICATED SNOMED Code(s): 35157013 Plan: 1. Continue regular diet 2. Alcohol abstinence, discussed with patient importance of alcohol abstinence to decrease risk of further esophageal variceal bleeding as well as cirrhosis of the liver 3. Continue Inderal 10 mg 3 times a day, prescription sent 4. Patient to follow-up with gastroenterology in 2-3 weeks, will have repeat EGD done in 6 weeks and will need close outpatient follow-up 5. Patient is cleared for discharge from gastroenterology if repeat hemoglobin stable Thank you for this consultation, we will continue to follow. Dr. John Werner I agree with the dictator's note, documented as a scribe by Oma Jorge.
[2021-05-18 15:34] LABS: % Iron Saturation 2.74 (15.00-50.00); Ferritin 38.4 ng/mL (22.0-322.0)
[2021-05-18] MEDS: DULoxetine HCL 60 MG CAPSULE.DR PO SCH (17:20)
[2021-05-18] MEDS: amLODIPine 10 MG TAB PO SCH (17:20)
[2021-05-19 08:16] LABS: Anisocytosis Slight; HCT 23.1 % (39.0-53.0); Hypochromasia Moderate; MCH 28.8 pg (25.0-35.0); MCHC 30.4 g/dL (31.0-37.0); MCV 94.6 fL (80.0-100.0); Mean Platelet Volume 7.3; Platelet Count 209 k/uL (150-450); RBC 2.44 m/uL (4.30-5.90); RDW 16.3 % (11.5-15.5)
[2021-05-19 08:24] LABS: ALT 52 U/L (4-49); AST 83 U/L (17-59); African American GFR (CKD) >90 (>60 ml/min/1.73 sqM); Albumin 3.2 g/dL (3.5-5.0); Alkaline Phosphatase 69 U/L (38-126); Anion Gap 4 mmol/L; Blood Urea Nitrogen 13 mg/dL (9-20); Calcium 8.4 mg/dL (8.4-10.2); Carbon Dioxide 26 mmol/L (22-30); Chloride 106 mmol/L (98-107); Glucose 100 mg/dL (74-99); Non-African American GFR(CKD) >90 (>60 ml/min/1.73 sqM); Potassium 4.2 mmol/L (3.5-5.1); Sodium 136 mmol/L (137-145); Total Bilirubin 0.7 mg/dL (0.2-1.3); Total Protein 6.5 g/dL (6.3-8.2)
[2021-05-19] MEDS: lisinopriL 20 MG TAB PO SCH (08:58)
[2021-05-19] MEDS: PROPRANOLOL 10 MG TAB PO SCH ×3 (08:59→20:44)
[2021-05-19] MEDS: PANTOPRAZOLE 40 MG/10 ML VIAL IVP SCH ×2 (09:09→20:44)
[2021-05-19] MEDS: FOLIC ACID 1 MG TAB PO SCH (09:10)
[2021-05-19] MEDS: THIAMINE 100 MG TAB PO SCH ×2 (09:10→17:32)
[2021-05-19] MEDS: MULTIVITAMINS, THERA 1 EACH TAB PO SCH (09:10)
--- NOTE | 2021-05-19 09:53 | P.PN ---
<Rito Pérez - Last Filed: 05/19/21 11:07> Subjective Progress Note Date: 05/19/21 Hospital course: Patient is a 50-year-old male with a past medical history of hypertension and chronic alcoholism. He presented to the emergency department on 05/25/21 with a chief complaint of vomiting blood x1 episode accompanied by upper abdominal discomfort with a 4 day history of black tarry stools, dizziness, fatigue, weakness, and shortness of breath with exertion. Patient was found to have acute blood loss anemia and admitted under our services for GI bleed with consultation to Gen. surgery and gastroenterology. Hemoglobin dropped to 6.2 and patient was transfused 1 unit PRBCs. He was placed on Protonix 40 mg IVP twice daily and underwent EGD with Dr. Werner on 05/16/21 with variceal ligation with deploy of 5 bands. Today, pt's hgb remains low at 7.0, GI ordered for transfusion of 1 unit PRBCs. Patient continues to deny any further episodes of hematemesis or hemoptysis. He continues to tolerate oral intake and denies experiencing any dizziness, lightheadedness, chest pain, palpitations, shortness of breath, abdominal pain or discomfort, nausea, melena, or hematochezia. Patient does state that he has been constipated and has not had a bowel movement since arrival to our facility for days ago. Order placed for mag citrate 1 dose followed by MiraLAX daily. At this time we will continue to monitor with repeat CBC this afternoon and again tomorrow morning. Physical exam: Vital signs reviewed and stable. General: Nontoxic, no distress and appears stated age. Derm: Skin warm and dry, normal coloration for ethnicity. Head: Atraumatic, normocephalic and symmetric. Eyes: EOMs intact, no lid lag, and anicteric sclera Mouth: no lip lesions, mucus membranes moist Cardiovascular: regular rate and rhythm with normal S1S2, no murmur, positive posterior tibial pulses bilaterally, and cap refill < 2 seconds. Lungs: Respirations even, regular, and unlabored on room air. Lungs CTA bilaterally, no rhonchi, no rales, no wheezing, and no accessory muscle usage. Abdominal: soft, nontender to palpation, no guarding, no appreciable organomegaly Ext: ROM intact. No gross muscle atrophy, no edema, no contractures Neuro: Speech clear, face symmetrical and CN II-XII grossly intact with no noted focal neuro deficits Psych: Alert and oriented to person, place, time, and situation. Appropriate and pleasant affect. Assessment and Plan of Care: Upper GI bleed Acute blood loss anemia secondary to upper GI bleed -Patient underwent EGD with variceal ligation and placement of 5 bands on 05/16/21 -Gastroenterology following. -Gen. surgery following -Status post 1 unit PRBCs -Hemoglobin 7.0, GI ordered for transfusion of 1 additional unit PRBCs. -Continue Protonix 40 mg IVP twice daily. -SCDs for DVT prophylaxis. -Plans to repeat CBC this afternoon and again tomorrow morning. EtOH use/abuse Transaminitis secondary to chronic EtOH abuse, improving -[facility] Protocol with symptom triggered medication management with benzodiazepines. -Thiamine 100 mg twice a day -Multivitamin daily -Folate 1 mg daily -Seizure, fall, aspiration, and elopement precautions in place. -Continued close monitoring of electrolytes and replace as needed. -Telemetry monitoring. Hypertension -Monitor vital signs and continue daily medication regimen with amlodipine and lisinopril. Hypomagnesemia, resolved CODE STATUS: Full code DVT prophylaxis: SCDs Discussed with: Patient and RN Anticipated discharge date: Tomorrow morning if hemoglobin is stable. Anticipated discharge place: Home A total of 40 minutes was spent on the care of this complex patient more than 50% of the time was spent in counseling and care coordination. Objective - Vital Signs Vital signs: Vital Signs Temp 96.4 F L 05/19/21 08:32 Pulse 79 05/19/21 08:32 Resp 16 05/19/21 08:32 BP 100/63 05/19/21 08:32 Pulse Ox 92 L 05/19/21 08:32 Intake & Output 05/18/21 05/19/21 05/19/21 18:59 06:59 18:59 Intake Total 600 Balance 600 Intake: Oral 600 Other: Voiding Method Toilet Toilet # Voids 3 2 - Labs CBC & Chem 7: 05/19/21 07:30 05/19/21 07:30 Labs: Abnormal Lab Results - Last 24 Hours (Table) 05/18/21 05/18/21 05/19/21 Range/Units 07:13 12:27 07:30 RBC 2.59 L 2.44 L (4.30-5.90) m/uL Hgb 7.6 L 7.0 L (13.0-17.5) gm/dL Hct 24.4 L 23.1 L (39.0-53.0) % MCHC 30.4 L (31.0-37.0) g/dL RDW 16.4 H 16.3 H (11.5-15.5) % Sodium (137-145) mmol/L Glucose (74-99) mg/dL Iron 12 L (65-175) ug/dL % Saturation 2.74 L (15.00-50.00) AST (17-59) U/L ALT (4-49) U/L Albumin (3.5-5.0) g/dL 05/19/21 Range/Units 07:30 RBC (4.30-5.90) m/uL Hgb (13.0-17.5) gm/dL Hct (39.0-53.0) % MCHC (31.0-37.0) g/dL RDW (11.5-15.5) % Sodium 136 L (137-145) mmol/L Glucose 100 H (74-99) mg/dL Iron (65-175) ug/dL % Saturation (15.00-50.00) AST 83 H (17-59) U/L ALT 52 H (4-49) U/L Albumin 3.2 L (3.5-5.0) g/dL <Christiano Martinez - Last Filed: 05/19/21 16:18> Subjective agree with note and plan Objective - Vital Signs Vital signs: Vital Signs Temp 98.8 F 05/19/21 12:05 Pulse 80 05/19/21 12:05 Resp 16 05/19/21 12:05 BP 128/66 05/19/21 12:05 Pulse Ox 98 05/19/21 12:05 Intake & Output 05/18/21 05/19/21 05/19/21 18:59 06:59 18:59 Intake Total 600 Balance 600 Weight 117.934 kg Intake: Oral 600 Other: Voiding Method Toilet Toilet # Voids 3 2 - Labs CBC & Chem 7: 05/19/21 14:35 05/19/21 07:30 Labs: Abnormal Lab Results - Last 24 Hours (Table) 05/19/21 05/19/21 05/19/21 Range/Units 07:30 07:30 07:30 RBC 2.44 L (4.30-5.90) m/uL Hgb 7.0 L (13.0-17.5) gm/dL Hct 23.1 L (39.0-53.0) % MCHC 30.4 L (31.0-37.0) g/dL RDW 16.3 H (11.5-15.5) % Sodium 136 L (137-145) mmol/L Glucose 100 H (74-99) mg/dL AST 83 H (17-59) U/L ALT 52 H (4-49) U/L Albumin 3.2 L (3.5-5.0) g/dL Crossmatch See Detail 05/19/21 Range/Units 14:35 RBC 2.58 L (4.30-5.90) m/uL Hgb 7.6 L (13.0-17.5) gm/dL Hct 24.2 L (39.0-53.0) % MCHC (31.0-37.0) g/dL RDW 16.0 H (11.5-15.5) % Sodium (137-145) mmol/L Glucose (74-99) mg/dL AST (17-59) U/L ALT (4-49) U/L Albumin (3.5-5.0) g/dL Crossmatch
[2021-05-19] MEDS ORDERED: MAGNESIUM CITRATE 296 ML BOTTLE PO ONE (11:10)
[2021-05-19] MEDS: polyethylene glycoL 3350 17 GM POWD.PACK PO SCH (11:23)
[2021-05-19 11:30] VITALS: BMI 34.2
--- NOTE | 2021-05-19 13:47 | CDI ---
Documentation Clarification Form Date: 05/19/2021 01:24:37 PM From: Danielle Ritter RN, CCDS Admit Date: 05/15/2021 08:11:00 AM Patient Name: Aryan Quintanilla Visit Number: [id number] Discharge Date: ATTENTION: The Clinical Documentation Specialists (CDI) and [facility] Coding Staff appreciate your assistance in clarifying documentation. Please respond to the clarification below the line at the bottom and electronically sign. The CDI & [facility] Coding staff will review the response and follow-up if needed. Please note: Queries are made part of the Legal Health Record. If you have any questions, please contact the author of this message via ITS. Dr. Christiano Martinez GI bleed is documented in ED assessment, consult, H/P and subsequent progress notes. Additional clarification regarding the etiology of the GI bleed is requested. 05/17 GI: EGD: Findings included small mid and distal esophageal varices and mild to moderate portal hypertensive gastropathy. History/risk factors: Alcohol abuse, Hypertension, Clinical Indicators: 50-year-old male present to ER with complaint of vomiting blood x1 episode, upper abdominal discomfort, black stools, dizziness, fatigue and weakness. 05/15 Vital signs: 98/65 85 20, 133/79 80 18 98.6 100 % RA 05/15 Labs: HGB 7.9, HCT 24.9 05/16 HGB 6.2, HGB 20.0 EGD findings: mild to moderate portal hypertensive gastropathy. Small mid/distal esophageal varices with no active bleeding. Total of 5 bands were deployed in the distal and midesophagus. Treatment: Telemetry monitoring .9NS 1,000 mls bolus Zofran 4 mg IV q 8 hrs prn Protonix 40 mg IVP bid CBC daily, Transfuse 1 UPRBC Please clarify the etiology of the GI bleed, if known: [ ] GIB due to esophageal varices with history of chronic alcohol abuse [ ] GIB, etiology unknown [ ] Other, please specify [ ] Unable to determine (Template Last Revised: July 2020) GIB, etiology unknown MTDD
[2021-05-19 14:53] LABS: HCT 24.2 % (39.0-53.0); HGB 7.6 gm/dL (13.0-17.5); Hypochromasia Moderate; MCH 29.5 pg (25.0-35.0); MCHC 31.5 g/dL (31.0-37.0); MCV 93.6 fL (80.0-100.0); Mean Platelet Volume 7.5; Platelet Count 231 k/uL (150-450); RBC 2.58 m/uL (4.30-5.90); WBC 9.9 k/uL (3.8-10.6)
--- NOTE | 2021-05-19 15:13 | P.PN ---
<Daniel,Renee - Last Filed: 05/19/21 15:10> Subjective Progress Note Date: 05/19/21 Principal diagnosis: Patient is 50-year-old male with a history of heavy alcohol abuse who presented with upper GI bleed. Yesterday he underwent EGD with variceal ligation. Findings included small mid and distal esophageal varices and mild to moderate portal hypertensive gastropathy. He denies any further bleeding today. Denies any nausea vomiting or abdominal pain. Yesterday he had a drop in his he moglobin to 6.2 and received 1 unit PRBC transfusion. Repeat hemoglobin today 8.1. Patient is 50-year-old male with a history of heavy alcohol abuse who presented with upper GI bleed. He underwent EGD with variceal ligation. Findings included small mid and distal esophageal varices and mild to moderate portal hypertensive gastropathy. He was transfused 1 unit of PRBC transfusion with a repeat hemoglobin 0.3. He again had another drop in his hemoglobin and today was 7.0. He has no reported abdominal pain, nausea, or vomiting. No hematemesis or coffee-ground emesis. Patient denies having a bowel movement and no rectal bleeding. He denies any shortness of breath, dizziness, or chest pain. His been up and ambulating. Objective - Vital Signs Vital signs: Vital Signs Temp 96.4 F L 05/19/21 08:32 Pulse 79 05/19/21 08:32 Resp 16 05/19/21 08:32 BP 100/63 05/19/21 08:32 Pulse Ox 92 L 05/19/21 08:32 Intake & Output 05/18/21 05/19/21 05/19/21 18:59 06:59 18:59 Intake Total 600 Balance 600 Intake: Oral 600 Other: Voiding Method Toilet Toilet # Voids 3 2 - Exam General appearance: The patient is alert, oriented, appears in no acute distress. HET: Head is normocephalic and atraumatic. Conjunctiva pink. Sclera anicteric. Neck: Supple without lymphadenopathy. Abdomen: Soft, nontender, nondistended with bowel sounds. No guarding or rigidity. Extremities: Normal skin color and turgor. No pedal edema Skin: No rashes, no jaundice Neurological: No focal deficits. Alert and oriented -3. - Labs CBC & Chem 7: 05/19/21 14:35 05/19/21 07:30 Labs: Abnormal Lab Results - Last 24 Hours (Table) 05/18/21 05/18/21 05/19/21 Range/Units 07:13 12:27 07:30 RBC 2.59 L 2.44 L (4.30-5.90) m/uL Hgb 7.6 L 7.0 L (13.0-17.5) gm/dL Hct 24.4 L 23.1 L (39.0-53.0) % MCHC 30.4 L (31.0-37.0) g/dL RDW 16.4 H 16.3 H (11.5-15.5) % Sodium (137-145) mmol/L Glucose (74-99) mg/dL Iron 12 L (65-175) ug/dL % Saturation 2.74 L (15.00-50.00) AST (17-59) U/L ALT (4-49) U/L Albumin (3.5-5.0) g/dL 05/19/21 Range/Units 07:30 RBC (4.30-5.90) m/uL Hgb (13.0-17.5) gm/dL Hct (39.0-53.0) % MCHC (31.0-37.0) g/dL RDW (11.5-15.5) % Sodium 136 L (137-145) mmol/L Glucose 100 H (74-99) mg/dL Iron (65-175) ug/dL % Saturation (15.00-50.00) AST 83 H (17-59) U/L ALT 52 H (4-49) U/L Albumin 3.2 L (3.5-5.0) g/dL Assessment and Plan (1) GI bleed Narrative/Plan: This a 50-year-old male with a history of alcohol abuse who admits to drinking 1 pint per day since September. He presented to the emergency department yesterday morning with complaints of 1 episode of bloody vomit. He states that he had approximately 1 cup of bright red blood. He presented to the emergency department for further evaluation. He denied any associated abdominal pain or diarrhea with the vomiting. He he denies any history of known liver disease. No history of esophageal varices. He did have an upper endoscopy approximately 8-9 years ago which she states they found a hiatal hernia. On admission he was noted to be anemic with a hemoglobin of 7.9. Repeat labs are pending. Possible etiologies include esophageal varices, AVM, gastritis, esophagitis or other possible etiologies. Protonix 40 mg twice a day. Plan for upper endoscopy today. Current Visit: Yes Status: Acute Code(s): K92.2 - GASTROINTESTINAL HEMORRHAGE, UNSPECIFIED SNOMED Code(s): 76069072 (2) Esophageal varices Narrative/Plan: Patient underwent EGD with findings of small mid and distal esophageal varices status post ligation as well as mild to moderate portal hypertensive gastropathy Current Visit: Yes Status: Acute Code(s): I85.00 - ESOPHAGEAL VARICES WITHOUT BLEEDING SNOMED Code(s): 91231056 (3) Alcohol abuse Current Visit: Yes Status: Acute Code(s): F10.10 - ALCOHOL ABUSE, UNCOMPLICATED SNOMED Code(s): 07193697 Plan: 1. Continue regular diet 2. Alcohol abstinence, discussed with patient importance of alcohol abstinence to decrease risk of further esophageal variceal bleeding as well as cirrhosis of the liver 3. Continue Inderal 10 mg 3 times a day, prescription sent 4. Patient to follow-up with gastroenterology in 2-3 weeks, will have repeat EGD done in 6 weeks and will need close outpatient follow-up 5. 1 unit of PRBC transfusion was ordered, however due to shortage of blood blood bank is holding blood for anybody for hemoglobin of 6.5 or less. Patient is asymptomatic with no signs of active GI bleed. 6. Patient is cleared for discharge from gastroenterology. Commend repeat H&H in 1-2 days Thank you for this consultation, we will continue to follow. Dr. John Werner I agree with the dictator's note, documented as a scribe by Oma Jorge. <Sabine Werner - Last Filed: 05/19/21 17:28> Objective - Vital Signs Vital signs: Vital Signs Temp 98.8 F 05/19/21 12:05 Pulse 80 05/19/21 12:05 Resp 16 05/19/21 12:05 BP 128/66 05/19/21 12:05 Pulse Ox 98 05/19/21 12:05 Intake & Output 05/18/21 05/19/21 05/19/21 18:59 06:59 18:59 Intake Total 600 Balance 600 Weight 117.934 kg Intake: Oral 600 Other: Voiding Method Toilet Toilet # Voids 3 2 - Labs CBC & Chem 7: 05/19/21 14:35 05/19/21 07:30 Labs: Abnormal Lab Results - Last 24 Hours (Table) 05/19/21 05/19/21 05/19/21 Range/Units 07:30 07:30 07:30 RBC 2.44 L (4.30-5.90) m/uL Hgb 7.0 L (13.0-17.5) gm/dL Hct 23.1 L (39.0-53.0) % MCHC 30.4 L (31.0-37.0) g/dL RDW 16.3 H (11.5-15.5) % Sodium 136 L (137-145) mmol/L Glucose 100 H (74-99) mg/dL AST 83 H (17-59) U/L ALT 52 H (4-49) U/L Albumin 3.2 L (3.5-5.0) g/dL Crossmatch See Detail 05/19/21 Range/Units 14:35 RBC 2.58 L (4.30-5.90) m/uL Hgb 7.6 L (13.0-17.5) gm/dL Hct 24.2 L (39.0-53.0) % MCHC (31.0-37.0) g/dL RDW 16.0 H (11.5-15.5) % Sodium (137-145) mmol/L Glucose (74-99) mg/dL AST (17-59) U/L ALT (4-49) U/L Albumin (3.5-5.0) g/dL Crossmatch Assessment and Plan Assessment: Addendum Patient has been completed of intermittent black tarry stools on and off for the last 1 month duration. Her hemoglobin dropped to 10.1 g/dL today. I had a lengthy discussion with the patient and he decided to proceed with an upper en doscopy tomorrow to evaluate anemia and intermittent dark colored stools. Patient is agreeable with this plan.
[2021-05-19] MEDS: amLODIPine 10 MG TAB PO SCH (17:32)
[2021-05-19] MEDS: DULoxetine HCL 60 MG CAPSULE.DR PO SCH (17:32)
[2021-05-20 03:23] VITALS: RESP 16
[2021-05-20 07:16] VITALS: BP 102/65; PULSE 78; TEMP 98.4
[2021-05-20] MEDS: PANTOPRAZOLE 40 MG/10 ML VIAL IVP SCH ×2 (08:24→08:28)
[2021-05-20] MEDS: FOLIC ACID 1 MG TAB PO SCH (08:25)
[2021-05-20] MEDS: PROPRANOLOL 10 MG TAB PO SCH (08:25)
[2021-05-20] MEDS: THIAMINE 100 MG TAB PO SCH (08:25)
[2021-05-20] MEDS: lisinopriL 20 MG TAB PO SCH (08:25)
[2021-05-20] MEDS: polyethylene glycoL 3350 17 GM POWD.PACK PO SCH (08:25)
[2021-05-20] MEDS: MULTIVITAMINS, THERA 1 EACH TAB PO SCH (08:25)
[2021-05-20 08:49] LABS: HCT 25.7 % (39.0-53.0); HGB 8.1 gm/dL (13.0-17.5); Hypochromasia Moderate; MCH 29.2 pg (25.0-35.0); MCHC 31.4 g/dL (31.0-37.0); MCV 93.2 fL (80.0-100.0); Mean Platelet Volume 7.6; Platelet Count 256 k/uL (150-450); RBC 2.76 m/uL (4.30-5.90); RDW 15.6 % (11.5-15.5); WBC 9.5 k/uL (3.8-10.6)
[2021-05-20] MEDS ORDERED: PANTOPRAZOLE 40 MG TABLET PO SCH (09:00)
--- NOTE | 2021-05-20 12:57 | P.DS ---
<Rito Pérez - Last Filed: 05/20/21 12:49> Providers Expected date of discharge: 05/20/21 Hospital Course: Discharge Diagnosis: Upper GI bleed resulting from esophageal varices with history of chronic alcohol use/abuse, status post esophageal banding Acute blood loss anemia secondary to upper GI bleed EtOH use/abuse Transaminitis secondary to chronic EtOH abuse, improving Hypertension Hypomagnesemia, resolved Hospital Course: Patient is a 50-year-old male with a past medical history of hypertension and chronic alcoholism. He presented to the emergency department on 05/25/21 with a chief complaint of vomiting blood x1 episode accompanied by upper abdominal discomfort with a 4 day history of black tarry stools, dizziness, fatigue, weakness, and shortness of breath with exertion. Patient was found to have acute blood loss anemia and admitted under our services for GI bleed with consultation to Gen. surgery and gastroenterology. Hemoglobin dropped to 6.2 and patient was transfused 1 unit PRBCs. He was placed on Protonix 40 mg IVP twice daily and underwent EGD with Dr. Werner on 05/16/21 with variceal ligation with deploy of 5 bands. Patient continues to deny any further episodes of tessy temesis or hemoptysis. He reports he is now having normal bowel functioning and denies having any melena or hematochezia. Patient continues to tolerate oral intake and denies experiencing any dizziness, lightheadedness, chest pain, palpitations, shortness of breath, abdominal pain or nausea. Hemoglobin is stable at 8.1. Patient is medically stable for discharge home at this time. He was given a prescription to follow up with repeat CBC in 3 days, results to be sent to PCP and GI for follow-up. Patient to follow-up with PCP as scheduled on 05/23/[address] Hagen on 05/25/21 as scheduled. Physical exam: Vital signs reviewed and stable. General: Nontoxic, no distress and appears stated age. Derm: Skin warm and dry, normal coloration for ethnicity. Head: Atraumatic, normocephalic and symmetric. Eyes: EOMs intact, no lid lag, and anicteric sclera Mouth: no lip lesions, mucus membranes moist Cardiovascular: regular rate and rhythm with normal S1S2, no murmur, positive posterior tibial pulses bilaterally, and cap refill < 2 seconds. Lungs: Respirations even, regular, and unlabored on room air. Lungs CTA bilaterally, no rhonchi, no rales, no wheezing, and no accessory muscle usage. Abdominal: soft, nontender to palpation, no guarding, no appreciable organomegaly Ext: ROM intact. No gross muscle atrophy, no edema, no contractures Neuro: Speech clear, face symmetrical and CN II-XII grossly intact with no noted focal neuro deficits Psych: Alert and oriented to person, place, time, and situation. Appropriate and pleasant affect. A total of 45 minutes of time were spent preparing this complex discharge summary. Patient Condition at Discharge: Stable Plan - Discharge Summary Discharge Rx Participant: No New Discharge Prescriptions: New Propranolol [Inderal] 10 mg PO TID #90 tab Folic Acid 1 mg PO DAILY 30 Days #30 tab Multivitamins, Thera [Multivitamin (formulary)] 1 each PO DAILY 30 Days #30 tab Pantoprazole [Protonix] 40 mg PO DAILY 30 Days #30 tab Thiamine [Vitamin B-1] 100 mg PO BID-W/MEALS 30 Days #60 tab polyethylene glycoL 3350 [Miralax] 17 gm PO DAILY packet Continue DULoxetine HCL [Cymbalta] 180 mg PO PC-SUPPER amLODIPine [Norvasc] 10 mg PO PC-SUPPER Esomeprazole Magnesium [NexIUM 24Hr] 20 mg PO PC-SUPPER Enalapril [Vasotec] 10 mg PO BID Discharge Medication List DULoxetine HCL [Cymbalta] 180 mg PO PC-SUPPER 05/15/21 [History] Esomeprazole Magnesium [NexIUM 24Hr] 20 mg PO PC-SUPPER 05/15/21 [History] amLODIPine [Norvasc] 10 mg PO PC-SUPPER 05/15/21 [History] Enalapril [Vasotec] 10 mg PO BID 05/16/21 [History] Propranolol [Inderal] 10 mg PO TID #90 tab 05/17/21 [Rx] Folic Acid 1 mg PO DAILY 30 Days #30 tab 05/18/21 [Rx] Multivitamins, Thera [Multivitamin (formulary)] 1 each PO DAILY 30 Days #30 tab 05/18/21 [Rx] Pantoprazole [Protonix] 40 mg PO DAILY 30 Days #30 tab 05/18/21 [Rx] Thiamine [Vitamin B-1] 100 mg PO BID-W/MEALS 30 Days #60 tab 05/18/21 [Rx] polyethylene glycoL 3350 [Miralax] 17 gm PO DAILY packet 05/20/21 [Rx] Follow up Appointment(s)/Referral(s): Onesimo Pandey MD [Medical Doctor] - 05/25/21 2:30 pm Samir Bejarano DO [Primary Care Provider] - 05/23/21 3:15 pm Prachi Pereira [facility] [REFERRING] - 05/26/21 1:30 pm Ambulatory/Diagnostic Orders: Complete Blood Count w/diff [LAB.AMB] Time Frame: 3 Days, Location: None Selected Patient Instructions/Handouts: Propranolol (By mouth), Thiamine (By mouth), Folic Acid (By mouth), Multivitamins, Adult Formula (By mouth), Pantoprazole (By mouth), Abuse of Alcohol (DC), Esophageal Varices (DC), Esophageal Banding (DC) Activity/Diet/Wound Care/Special Instructions: Activity: As tolerated. Take breaks as needed. Diet: Soft regular diet Special Instructions: Take all of your medications as directed and remember to keep all of your doctor's appointments and follow-up as needed. Strongly encourage complete cessation of all alcohol use!! Wishing you a happy and healthy New Year!!! Thank you for allowing us to participate in your care, it was truly a pleasure having you for our patient!!! Discharge/Stand Alone Forms: AA Meetings [place] Discharge Disposition: HOME SELF-CARE <Christiano Martinez A - Last Filed: 05/21/21 10:50> Providers Date of admission: 05/15/21 08:11 Attending physician: Stacy Tran MD Consults: 05/15/21 08:11 Consult Physician Routine Consulting Provider: Onesimo Pandey Consult Reason/Comments: GI bleed Do you want consulting provider notified?: Yes Consult Physician Routine Consulting Provider: Sabine Werner Consult Reason/Comments: GI bleed Do you want consulting provider notified?: Yes Primary care physician: Samir [place] Hospital Course: agree with note and plan
--- NOTE | 2021-05-20 13:56 | P.PN ---
Subjective Progress Note Date: 05/20/21 Principal diagnosis: GI bleed Patient is 50-year-old male with a history of heavy alcohol abuse who presented with upper GI bleed. He underwent EGD with variceal ligation. Findings included small mid and distal esophageal varices and mild to moderate portal hypertensive gastropathy. He was transfused 1 unit of PRBC transfusion. Patient's hemoglobin has been stable at 7.8. He was given magnesium citrate yesterday and had several bowel movements. He states initially he had some black stool however after it was brown. No nausea or vomiting. Denies any dizziness or lightheaded. Objective - Vital Signs Vital signs: Vital Signs Temp 98.4 F 05/20/21 07:14 Pulse 78 05/20/21 07:14 Resp 16 05/20/21 07:14 BP 102/65 05/20/21 07:14 Pulse Ox 98 05/20/21 07:14 Intake & Output 05/19/21 05/20/21 05/20/21 18:59 06:59 18:59 Intake Total 10 Balance 10 Weight 117.934 kg Intake: Intake, IV Titration 10 Amount Sodium Chloride 0.9% 500 10 ml 500 ml @ 0 mls/hr IV . WhatsNexx ONE Rx#: [id number] Other: Voiding Method Toilet # Voids 6 # Bowel Movements 3 - Exam General appearance: The patient is alert, oriented, appears in no acute distress. HET: Head is normocephalic and atraumatic. Conjunctiva pink. Sclera anicteric. Neck: Supple without lymphadenopathy. Abdomen: Soft, nontender, nondistended with bowel sounds. No guarding or rigidity. Extremities: Normal skin color and turgor. No pedal edema Skin: No rashes, no jaundice Neurological: No focal deficits. Alert and oriented -3. - Labs CBC & Chem 7: 05/20/21 08:00 05/19/21 07:30 Labs: Abnormal Lab Results - Last 24 Hours (Table) 05/19/21 05/19/21 Range/Units 07:30 14:35 RBC 2.58 L (4.30-5.90) m/uL Hgb 7.6 L (13.0-17.5) gm/dL Hct 24.2 L (39.0-53.0) % RDW 16.0 H (11.5-15.5) % Crossmatch See Detail Assessment and Plan (1) GI bleed Narrative/Plan: This a 50-year-old male with a history of alcohol abuse who admits to drinking 1 pint per day since September. He presented to the emergency department yesterday morning with complaints of 1 episode of bloody vomit. He states that he had approximately 1 cup of bright red blood. He presented to the emergency department for further evaluation. He denied any associated abdominal pain or diarrhea with the vomiting. He he denies any history of known liver disease. No history of esophageal varices. He did have an upper endoscopy approximately 8-9 years ago which she states they found a hiatal hernia. On admission he was noted to be anemic with a hemoglobin of 7.9. Repeat labs are pending. Possible etiologies include esophageal varices, AVM, gastritis, esophagitis or other possible etiologies. Protonix 40 mg twice a day. Plan for upper endoscopy today. Status: Acute Code(s): K92.2 - GASTROINTESTINAL HEMORRHAGE, UNSPECIFIED SNOMED Code(s): 73274495 (2) Esophageal varices Narrative/Plan: Patient underwent EGD with findings of small mid and distal esophageal varices status post ligation as well as mild to moderate portal hypertensive gastropathy Status: Acute Code(s): I85.00 - ESOPHAGEAL VARICES WITHOUT BLEEDING SNOMED Code(s): 06053125 (3) Alcohol abuse Status: Acute Code(s): F10.10 - ALCOHOL ABUSE, UNCOMPLICATED SNOMED Code(s): 97262964 Plan: 1. Continue regular diet 2. Alcohol abstinence, discussed with patient importance of alcohol abstinence to decrease risk of further esophageal variceal bleeding as well as cirrhosis of the liver 3. Continue Inderal 10 mg 3 times a day, prescription sent 4. Patient to follow-up with gastroenterology in 2-3 weeks, will have repeat EGD done in 6 weeks and will need close outpatient follow-up 5. Patient is cleared for discharge from gastroenterology Thank you for this consultation.. Dr. John Werner I agree with the dictator's note, documented as a scribe by Oma Jorge.
== END 2021-05-20 10:41 | disposition home or self-care (01) | DRG 441 ==
LOC: EC 05:37 → 4SSUR 08:11 → 3NCARDOBS 05-16 06:41
PROVIDERS: ADMIT Internal Medicine; ATTEND Internal Medicine
PROC: 30233N1 Transfusion of Nonautologous Red Blood Cells into Peripheral Vein, Percutaneous Approach (ICD-10-PCS; 2021-05-16)
PROC: 0DJ08ZZ Inspection of Upper Intestinal Tract, Via Natural or Artificial Opening Endoscopic (ICD-10-PCS; principal; 2021-05-16 07:30)
PROC: 06L38CZ Occlusion of Esophageal Vein with Extraluminal Device, Via Natural or Artificial Opening Endoscopic (ICD-10-PCS; principal; 2021-05-16 07:30)
DX: K76.6 Portal hypertension (principal); I85.11 Secondary esophageal varices with bleeding; D62 Acute posthemorrhagic anemia; K31.89 Other diseases of stomach and duodenum; E83.42 Hypomagnesemia; E86.0 Dehydration; F10.20 Alcohol dependence, uncomplicated; Z71.41 Alcohol abuse counseling and surveillance of alcoholic; F17.210 Nicotine dependence, cigarettes, uncomplicated; F31.9 Bipolar disorder, unspecified; I10 Essential (primary) hypertension; R74.01 Elevation of levels of liver transaminase levels; K44.9 Diaphragmatic hernia without obstruction or gangrene; K59.00 Constipation, unspecified; Z80.3 Family history of malignant neoplasm of breast; Z82.49 Family history of ischemic heart disease and other diseases of the circulatory system; Z98.890 Other specified postprocedural states; Z90.49 Acquired absence of other specified parts of digestive tract; Z20.822 Contact with and (suspected) exposure to COVID-19; Z79.899 Other long term (current) drug therapy
CPT/HCPCS: 36415; 43244; 71045; 80053; 82272; 82728; 83540; 83550; 83735; 85025; 85027; 85610; 85730; 86850; 86900; 86901; 86920; 87635; 96361; 96374; 99285

== ENCOUNTER 2021-06-10 10:35 | Day surgery (SDC) | payer OTHER ==
[2021-06-08 16:09] VITALS: BMI 35.6
[~2021-06-10 10:35] MED LIST: LACTATED RINGERS 1,000 ML IV SCH
[2021-06-10 11:06] VITALS: TEMP 98.1
[2021-06-10] MEDS ORDERED: LIDOCAINE 1% (10MG/ML) FOR IV START INTRADERMA ONE (11:10)
[2021-06-10] MEDS ORDERED: PROPOFOL 10 MG/ML 20 ML VIAL IV ONE (11:30)
[2021-06-10] MEDS ORDERED: LIDOCAINE 1% INJ 10MG/ML (20 ML MDV) ONE (11:30)
--- NOTE | 2021-06-10 11:45 | P.PCN ---
Date of Procedure: 06/10/21 Procedure(s) Performed: BRIEF HISTORY: Patient is a 51-year-old, pleasant, white male scheduled for an upper endoscopy as a part of follow-up esophageal varices. History of chronic cirrhosis of the liver diagnosed recently She was admitted to [facility] 4 weeks ago with acute upper GI bleed. Upper endoscopy revealed distal esophageal varices for which he underwent variceal ligation. He scheduled for a follow-up upper endoscopy today.. PROCEDURE PERFORMED: Esophagogastroduodenoscopy. PREOPERATIVE DIAGNOSIS: Follow-up esophageal varices. IV sedation per anesthesia. PROCEDURE: After informed consent was obtained, the patient was brought into the endoscopy unit. IV sedation was administered by Anesthesia under continuous monitoring. Initially the Olympus GIF-140 video endoscope was inserted into the mouth. Esophagus intubated without any difficulty. It was gradually advanced into the stomach and duodenum and carefully examined. The bulb and the second part of the duodenum appeared normal. The scope at this time was withdrawn to the stomach, adequately insufflated with air, and upon careful examination, mucosa of the antrum, body, cardia and the fundus had changes consistent with mild to moderate portal hypertensive gastropathy. No gastric varices identified. The scope was then withdrawn into the esophagus. The GE junction was located at 39 cm from the incisors. Small hiatal hernia noted. The esophagus appeared normal. There were very small distal esophageal varices seen and hence ligation was not performed. There were no erosions or ulcerations seen and the patient tolerated the procedure well. IMPRESSION: 1. Very small distal esophageal varices. 2. Portal hypertensive gastropathy. 3. Small hiatal RECOMMENDATIONS: The findings of this examination were discussed with the patient as well as his family. He was advised to have a repeat upper endoscopy in 6 months to one year. Continued to remain absent from alcohol..
[2021-06-10 11:52] VITALS: RESP 18
[2021-06-10 12:05] VITALS: BP 125/78; PULSE 78
== END 2021-06-10 12:20 | disposition home or self-care (01) ==
LOC: ORWHC2ENDO 10:35
PROVIDERS: ATTEND Internal Medicine Gastroenterology
DX: I85.00 Esophageal varices without bleeding (principal)
CPT/HCPCS: 43235; J2001; J2704

== ENCOUNTER → 2021-06-15 | Outpatient (CLI) | payer OTHER ==
--- NOTE | 2021-06-15 11:04 | US ---
EXAMINATION TYPE: US liver DATE OF EXAM: 06/15/2021 COMPARISON: NONE CLINICAL HISTORY: K70.30 Alcoholic cirrhosis of liver without ascite. Abnormal LFT's, recently diagno sed with cirrhosis EXAM MEASUREMENTS: Liver Length: 19.1 cm Gallbladder Wall: 0.4 cm CBD: 0.4 cm Right Kidney: 11.1 x 4.7 x 5.6 cm Pancreas: wnl, tail obscured by overlying bowel gas Liver: Enlarged especially left lobe, heterogeneous Gallbladder: possible "gravel" stones, wall thickened and appeared irregular Evidence for sonographic Kirkland's sign: No CBD: wnl Right Kidney: wnl IMPRESSION: 1 hepatomegaly with underlying hepatic heterogeneity. 2. Gravel stones noted.
== END | disposition home or self-care (01) ==
LOC: RADUSWWP 10:19
PROVIDERS: ATTEND Internal Medicine Gastroenterology
DX: R16.0 Hepatomegaly, not elsewhere classified (principal); K80.20 Calculus of gallbladder without cholecystitis without obstruction
CPT/HCPCS: 76705